=== PATIENT | female | born 1985 ===

== ENCOUNTER 2017-11-27 09:01 | Observation (INO) | payer OTHER ==
[~2017-11-27] VITALS: Ht 157.5 cm; Wt 61.3 kg
[2017-11-27 09:02] VITALS: BP 140/77; PULSE 68; RESP 18; TEMP 98; O2SAT 100
--- NOTE | 2017-11-27 11:07 | PD ---
HPI Chief Complaint: Abdominal Pain Time Seen by Provider: 10:49 Travel History International Travel<30 days: No Contact w/Intl Traveler<30days: No Traveled to known affect area: No History of Present Illness HPI The patient is a 32-year-old female who presents emergency department for right upper quadrant abdominal pain. The patient has had abdominal pain since September, after the delivery of her child. The patient was seen yesterday in the office by Dr. Siegel, had imaging the ultrasound which revealed gallstones. The patient has had pain that is postprandial and associated with nausea and vomiting. She notes decreased appetite over the last several days and has been unable to tolerate oral intake secondary to persistent right upper quadrant abdominal pain after eating. The patient did deliver a child 2-1/2 months ago, recently had a menstrual cycle, but denies . She does know postprandial nausea and vomiting with pain. She denies any fever, chills, or sweats. Symptoms are moderate, possibly exacerbated by gallstones and eating, and there are no current alleviating factors. The patient called her general surgeon, Dr. Siegel, who referred her to the emergency department. [facility] Past Medical History Medical History: Denies Significant Hx Gastrointestinal Disorders: Yes (gall stones) Tetanus Vaccination: Unknown Influenza Vaccination: No ?: Not LMP: 10/2017 : 2 Para: 2 Past Surgical History Oral Surgery: Yes (wisdom teeth removal) Social History Alcohol Use: No Tobacco Use: No Substance Use: No Allergies-Medications (Allergen,Severity, Reaction): Coded Allergies: No Known Allergies (Unverified , 11/27/17) Reported Meds & Prescriptions Reported Meds & Active Scripts Active No Active Prescriptions or Reported Medications Review of Systems Except as stated in HPI: all other systems reviewed are Neg General / Constitutional: No: Fever Cardiovascular: No: Chest Pain or Discomfort Respiratory: No: Shortness of Breath Gastrointestinal: Positive: Nausea, Vomiting, Abdominal Pain, No: Diarrhea Neurologic: No: Weakness Physical Exam Narrative GENERAL: Awake, alert, very pleasant 32 year-old female who appears her stated age and is in no acute respiratory distress. SKIN: Focused skin assessment warm/dry. HEAD: Atraumatic. Normocephalic. EYES: Pupils equal and round. No scleral icterus. No injection or drainage. ENT: No nasal bleeding or discharge. Mucous membranes pink and moist. NECK: Trachea midline. No JVD. CARDIOVASCULAR: Regular rate and rhythm. No murmur appreciated. RESPIRATORY: No accessory muscle use. Clear to auscultation. Breath sounds equal bilaterally. GASTROINTESTINAL: Abdomen soft, tender palpation right upper quadrant. Positive Doyle's. MUSCULOSKELETAL: No obvious deformities. No clubbing. No cyanosis. No edema. NEUROLOGICAL: Awake and alert. No obvious cranial nerve deficits. Motor grossly within normal limits. Normal speech. PSYCHIATRIC: Appropriate mood and affect; insight and judgment normal. Data Data Last Documented VS Vital Signs Date Time Temp Pulse Resp B/P (MAP) Pulse Ox O2 Delivery O2 Flow Rate FiO2 11/27/17 10:51 16 11/27/17 09:02 98.0 68 140/77 (98) 100 Room Air Orders Orders Complete Blood Count With Diff (11/27/17 10:17) Comprehensive Metabolic Panel (11/27/17 10:17) Act Partial Throm Time (Ptt) (11/27/17 10:17) Prothrombin Time / Inr (Pt) (11/27/17 10:17) Urinalysis - C+S If Indicated (11/27/17 10:17) Ed Urine Pregnancytest Poc (11/27/17 10:19) Morphine Inj (Morphine Inj) (11/27/17 11:00) Ondansetron Inj (Zofran Inj) (11/27/17 11:00) Sodium Chlor 0.9% 1000 Ml Inj (Ns 1000 M (11/27/17 11:00) NPO (11/27/17 10:49) Admit Order (Ed Use Only) (11/27/17 10:53) MDM Medical Decision Making Medical Screen Exam Complete: Yes Emergency Medical Condition: Yes Medical Record Reviewed: Yes Interpretation(s) CBC unremarkable AST and ALT from CMP elevated, bilirubin were normal Differential Diagnosis Differential diagnosis includes cholecystitis, retained biliary stone, choledocholithiasis, symptomatic cholelithiasis, pancreatitis, peptic ulcer disease. Narrative Course IV was established, labs are drawn and sent, and the patient was placed on cardiac telemetry monitoring and continuous pulse oximeter monitoring. I discussed the patient with Dr. Siegel who request laboratory evaluation, and nothing by mouth. The patient will be kept nothing by mouth and plan for surgery. The patient was ordered morphine, Zofran, and IV fluids. The patient will go straight to PACU from [facility]. Physician Communication Physician Communication The patient will be 23 hour observation to same-day care under Dr. Siegel and will go straight to PACU. Diagnosis Primary Impression: Symptomatic cholelithiasis Admitting Information Admitting Physician Requests: Observation Scripts No Active Prescriptions or Reported Meds Condition: Stable Thanh Agrawal MD Nov 27, 2017 11:07
[2017-11-27] MEDS ORDERED: BUPIVACAINE/EPINEPHRINE 0.25% 50 ML VIAL ONE (11:22)
[2017-11-27] MEDS ORDERED: ROCURONIUM INJ 50 MG/5 ML SYRINGE IV PUSH ONE (12:00)
[2017-11-27] MEDS ORDERED: LIDOCAINE HCL 1% PF 5 ML SYRINGE OTHER ONE (12:00)
[2017-11-27] MEDS ORDERED: ONDANSETRON HCL 4 MG/2 ML VIAL IV PUSH ONE ×2 (12:00→13:48)
[2017-11-27] MEDS ORDERED: GLYCOPYRROLATE 1 MG/5 ML SYRINGE IV PUSH ONE (12:00)
[2017-11-27] MEDS ORDERED: PROPOFOL 200 MG/20 ML AMP IV ONE (12:00)
[2017-11-27] MEDS ORDERED: SODIUM CHLORIDE 0.9% 20 ML VIAL IV ONE (12:00)
[2017-11-27] MEDS ORDERED: NEOSTIGMINE 5 MG/5 ML SYRINGE IV PUSH ONE (12:00)
[2017-11-27] MEDS ORDERED: ceFAZolin INJ 1,000 MG VIAL IV ONE (12:00)
[2017-11-27 12:05] LABS: AUTOMATED NEUTROPHIL # 3.6 TH/MM3 (1.8-7.7); BASOPHIL % 0.6 % (0.0-2.0); EOSINOPHIL # 0.2 TH/MM3 (0-0.4); HEMATOCRIT 38.8 % (35.0-46.0); HEMOGLOBIN 13.2 GM/DL (11.6-15.3); LYMPH % 28.3 % (9.0-44.0); LYMPHOCYTE # 1.6 TH/MM3 (1.0-4.8); MEAN CORPUSCULAR HEMOGLOBIN 30.2 PG (27.0-34.0); MEAN PLATELET VOLUME 9.3 FL (7.0-11.0); MONO % 5.7 % (0.0-8.0); MONOCYTE # 0.3 TH/MM3 (0-0.9); NEUT % 62.4 % (16.0-70.0); PLATELET COUNT 177 TH/MM3 (150-450); RED BLOOD COUNT 4.36 MIL/MM3 (4.00-5.30); RED CELL DISTRIBUTION WIDTH 13.8 % (11.6-17.2); WHITE BLOOD COUNT 5.8 TH/MM3 (4.0-11.0)
[2017-11-27 12:14] LABS: INTERNATIONAL NORMALIZED RATIO 1.1 RATIO; PROTHROMBIN TIME - PATIENT 10.7 SEC (9.8-11.6)
[2017-11-27 12:25] LABS: AST (GOT) 343 U/L (15-37); BICARBONATE 24.4 MEQ/L (21.0-32.0); BLOOD UREA NITROGEN 18 MG/DL (7-18); CALCIUM 8.9 MG/DL (8.5-10.1); CHLORIDE 107 MEQ/L (98-107); CREATININE 0.66 MG/DL (0.50-1.00); GLOMERULAR FILTRATION RATE 105 ML/MIN (>89); GLUCOSE,RANDOM 69 MG/DL (74-106); SODIUM (NA) 139 MEQ/L (136-145)
[2017-11-27 12:26] LABS: ALT (GPT) 806 U/L (10-53)
[2017-11-27 12:28] LABS: ALKALINE PHOSPHATASE 337 U/L (45-117); TOTAL BILIRUBIN ADULT 0.8 MG/DL (0.2-1.0)
[2017-11-27] MEDS ORDERED: DO NOT ADM ANY ANTICOAGULANT DRUGS PRN (13:34)
[2017-11-27] MEDS ORDERED: *morphine SULFATE 4 MG/ML PERIprocedure ONLY ONE ×2 (13:41→14:06)
--- NOTE | 2017-11-27 13:41 | HHI.PR ---
cc: Bryon Siegel MD Immediate Post Op Note Procedure Date: Nov 27, 2017 Pre Op Diagnosis: Acute cholecystitis with elevated LFT's Post Op Diagnosis: Same Surgeon: Bryon Siegel Enamel Finisher(s): Louise Calixto CFA Procedure: Laparoscopic cholecystectomy with intraoperative cholangiogram with intraoperative use of fluoroscopy Findings: No flow of contrast past distal CBD; no evidence filling defects Complications: None Specimen(s) removed: Gallbladder to pathology Estimated blood loss: 20 ml Anesthesia: General Drains: None IVF (700 ml) Patient to: PACU Patient Condition: Good Date/Time of Procedure: SEE SURGICAL CARE RECORD Bryon Siegel MD Nov 27, 2017 13:41
[2017-11-27] MEDS ORDERED: *ONDANSETRON 4 MG VIAL PERIprocedural Use ONLY ONE (13:48)
[2017-11-27] MEDS ORDERED: MORPHINE SULFATE 2 MG/ML INJ IV PUSH ONE (14:00)
[2017-11-27] MEDS ORDERED: ACETAMINOPHEN/HYDROcodone 325 MG/5 MG TAB PO PRN (14:00)
[2017-11-27] MEDS: SODIUM CHLOR 0.9% 1000 ML INJ 1,000 ML IV SCH ×2 (14:00→23:24)
[2017-11-27] MEDS ORDERED: *MEPERIDINE 25 MG INJ VIAL PERIprocedural Use ONLY ONE (14:08)
[2017-11-27] MEDS ORDERED: diphenhydrAMINE HCL 25 MG CAP PO PRN (14:15)
[2017-11-27] MEDS ORDERED: SODIUM CHLOR 0.9% 1000 ML INJ 1,000 ML IV ONE (14:15)
[2017-11-27] MEDS ORDERED: NALOXONE HCL 0.4 MG/ML AMP IV PUSH PRN (14:15)
[2017-11-27] MEDS ORDERED: Post-op Orders (for Pharmacy) XX ONE (14:30)
--- NOTE | 2017-11-27 15:00 | RADRPT ---
EXAM DATE/TIME: 11/27/2017 12:57 [facility] COMPARISON: No previous studies available for comparison. INDICATIONS : obstruction. FLUORO TIME: 1.52 minutes IMAGE COUNT: 3 MEDICAL HISTORY : Cholelithiasis. SURGICAL HISTORY : None. ENCOUNTER: Initial ACUITY: 1 day PAIN SCORE: Non-responsive. LOCATION: Right upper quadrant PROCEDURE: CHOLANGIOGRAM, OPERATIVE 1. Intraoperative cholangiogram. In the operating room, the cystic duct stump was injected and radiographs obtained. There is mild prominence to the common duct with smooth tapering into the head of the pancreas. Ther e is no spillage into the duodenum.. Filling defect is not appreciated. CONCLUSION: Smooth tapering distal common duct through the head of pancreas without spillage into the duodenum. I have no prior studies for comparison. Felix Elmore MD FACR on November 27, 2017 at 14:56 Board Certified Radiologist. This report was verified electronically.
[2017-11-27] MEDS: MORPHINE SULFATE 2 MG/ML INJ IV PUSH PRN ×4 (16:05→23:24)
[2017-11-27 17:24] VITALS: BP 111/71; PULSE 73; RESP 16; TEMP 96.3; O2SAT 99
[2017-11-27 20:00] VITALS: BP 105/67; PULSE 62; RESP 17; TEMP 97.9; O2SAT 96
--- NOTE | 2017-11-27 20:30 | RADRPT ---
EXAM DATE/TIME: 11/27/2017 19:39 [facility] COMPARISON: No previous studies available for comparison. INDICATIONS : Abdominal pain. Post cholecystectomy. Abnormal cholangiogram. MEDICAL HISTORY : None. SURGICAL HISTORY : Cholecystectomy. ENCOUNTER: Subsequent ACUITY: 1 day PAIN SCORE: 4/10 LOCATION: abdomen. TECHNIQUE: Multiplanar, multisequence magnetic resonance imaging of the abdomen was performed. High-resolution 3D dataset was utilized to reconstruct maximum-intensity projection (MIP) images. FINDINGS: INTRAHEPATIC BILE DUCTS: Within normal limits. No significant anatomical variant is present. EXTRAHEPATIC BILE DUCTS: There is an acute angle in the common bile duct just distal to the cystic duct insertion but I don't believe it's a filling defect or stone. At the very distal common bile duct there is a small 2 mm ender ling defect could be air or small stones. GALLBLADDER: Surgically absent. LIVER: Normal size and signal intensity. No concerning liver lesion is identified on this non-contrast exam. PANCREAS: The main pancreatic duct is normal in size. There is no significant anatomical variant. Signal inte nsity is within normal limits. No mass is visualized on this non-contrast exam. OTHER: The remaining visualized structures demonstrate no acute abnormality on this non-contrast exam. CONCLUSION: The patient had a recent cholecystectomy. There is a 2 mm filling defect in the distal common bile du ct just above the ampulla. Stone versus small area of retained air. Socrates Jackson MD on November 27, 2017 at 20:26 Board Certified Radiologist. This report was verified electronically.
[2017-11-28] VITALS: BP_SYST 117; BP_SYST 127; BP_DIAS 60; BP_DIAS 68; PULSE 53; PULSE 70; RESP 16; RESP 17; TEMP 97.7; TEMP 98; O2SAT 96; O2SAT 98
[2017-11-28] MEDS ORDERED: LACTATED RINGER'S 1000 ML IV PRN (02:00)
[2017-11-28] MEDS ORDERED: CHLORHEXIDINE GLUCONATE 2 % 1 PACK (2 CLOTHS) TOPICAL PRN (02:00)
[2017-11-28] MEDS ORDERED: POVIDONE IODINE 5% (ANTISEPSIS KIT) 4 APPLICATIONS EACH NARE PRN (02:00)
[2017-11-28] MEDS ORDERED: SODIUM CHLORID 0.9% 500 ML IV PRN (02:00)
[2017-11-28] MEDS: MORPHINE SULFATE 2 MG/ML INJ IV PUSH PRN ×5 (03:23→23:06)
--- NOTE | 2017-11-28 07:24 | MP ---
cc: ELIDA DANIELLE M.D. DATE OF SURGERY 11/27/2017 PROCEDURE Laparoscopic cholecystectomy with intraoperative cholangiogram with intraoperative use of fluoroscopy. PREOPERATIVE DIAGNOSIS Acute cholecystitis with possible choledocholithiasis. POSTOPERATIVE DIAGNOSIS Acute cholecystitis without evidence of filling defect but with distal common bile duct obstruction. ANESTHESIA General endotracheal. SURGEON MD Robbin ESTIMATED BLOOD LOSS 20 mL. FLUIDS 700 mL crystalloid. COMPLICATIONS None. DRAINS None. SPECIMEN Gallbladder to pathology. PROCEDURE IN DETAIL The patient was taken to the operating room and placed on the operating table in the supine position. After an adequate level of general endotracheal anesthesia was achieved, the abdomen was prepped and draped in the usual fashion. Time-out was taken confirming the correct patient site and procedure to be performed. The skin and subcutaneous tissue was infiltrated with local anesthetic and an incision made in the umbilicus and carried through the fascia sharply. The peritoneal cavity was directly visualized. A 12-mm balloon trocar was inserted and the balloon inflated. The abdomen was insufflated. The patient was placed in reverse Trendelenburg position. Three 5-mm trocars were then placed with the first to the right of the falciform ligament and second and third in the right subcostal region. All entered the abdominal cavity under direct vision uneventfully. The fundus of the gallbladder was then grasped and retracted up and over the dome of the liver. The cystic duct-infundibular junction and cystic artery were both circumferentially dissected. The cystic artery was doubly clipped proximally, singly clipped on the gallbladder side and divided. The cystic duct was singly clipped on the gallbladder side and a cystic ductotomy was made as the patient had elevated liver function tests and there was some concern for common duct stone. The patient had placement of an Rojas cholangiocatheter via separate a stab incision which was secured with a clip. Full-strength contrast was utilized and under real-time fluoroscopy three runs were made. Glucagon was given after the first run as the common duct filled with good backfilling of the common hepatic duct and the left and right hepatic ducts and hepatic radicals. The distal common bile duct also filled including the intrapancreatic portion of the distal bile duct. No filling defects were noted, however there was no passage of contrast into the duodenum. After the third run, the cholangiocatheter was removed and the cystic duct was triply clipped distally and then divided. The gallbladder was dissected off of the liver bed. A small posterior branch off the cystic artery was noted and this was doubly clipped during removal of the gallbladder to achieve absolute hemostasis. The gallbladder was dissected off of the liver bed with electrodissection. The gallbladder was placed into an EndoCatch device and removed via the umbilical port while observing via the upper 5-mm trocar site. The specimen was passed off the table. The upper abdomen was revisualized and all irrigation aspirated. The cystic artery stumps, cystic duct stump and liver bed were all seen to be clean and dry. Insufflation was discontinued and the upper abdominal trocars were removed under direct vision. No bleeding was noted from the trocar sites. The laparoscope and umbilical port were removed. The fascia was closed at the umbilicus with both simple interrupted and [id number] 0 Vicryl suture. 4-0 Vicryl in an interrupted buried fashion was used to close all of the port sites except for the cholangiocatheter site. Steri-Strips were used to dress all sites. The patient was extubated and taken back to the recovery room in stable condition. She tolerated the procedure well. MD SERGEI Cast/[place] /1:44 PM /7:07 AM
[2017-11-28 08:00] VITALS: BP 100/57; PULSE 68; RESP 17; TEMP 97.7; O2SAT 97
[2017-11-28] MEDS: SODIUM CHLOR 0.9% 1000 ML INJ 1,000 ML IV SCH ×2 (09:14→20:54)
--- NOTE | 2017-11-28 10:19 | MB ---
cc: ELIDA SIEGEL M.D., LOUIS M. MD PASRICHA, SUNIL P. M.D. DATE OF CONSULTATION 11/27/2017 DATE OF 1985 REASON FOR CONSULTATION I was asked to see the patient by Dr. Siegel for evaluation of possible common bile duct obstruction. HISTORY OF THE PRESENT ILLNESS The patient is a pleasant 32-year-old female who recently delivered a healthy child. About a month after delivery she started getting upper abdominal pain. It was sharp and cramping and radiating from the epigastric area to her back. She went to the emergency room in her local community and apparently an ultrasound showed gallstones and 7-mm common bile duct. There is minimal elevation of her SGOT also. At this point she was sent by Dr. Pnoce to see Dr. Siegel who operated on her today. The gallbladder was not inflamed and it was removed laparoscopically. An intraoperative cholangiogram was done and the bile duct was slightly dilated but there is no spillage into the duodenum. There is no filling defects noted in the bile duct. We have been asked to comment on this. In addition her transaminase and alkaline phosphatase are quite elevated but her bilirubin is normal. The patient denies any family history of any gallbladder disease. No persons in the family with liver disease. There is no history of blood transfusion or hepatitis. At this time she still has some upper abdominal pain but it is hard to tell whether it is the previous pain or from the gallbladder operation. PAST MEDICAL HISTORY Significant for: 1. Gallstones as mentioned above. 2. She also has history of asthma. PAST SURGICAL HISTORY Recent gallbladder removal. MEDICATIONS Mostly outpatient. ALLERGIES No known drug allergies. FAMILY HISTORY Not significant for any colon cancer, colon polyps or gallbladder disease. SOCIAL HISTORY Does not smoke or drink. REVIEW OF SYSTEMS As an outpatient she had chills but no fevers. CARDIOPULMONARY: No chest pain, palpitations or recent shortness of breath. GASTROINTESTINAL: Please see above. She also denies any melena, hematochezia, diarrhea or constipation. She has had nausea and vomiting but it is better now. Otherwise unremarkable ten-point review of symptoms. MEDICATIONS As an inpatient are: 1. Zofran. 2. Benadryl. 3. Narcan. 4. [place]. 5. Morphine. PHYSICAL EXAMINATION VITAL SIGNS: Blood pressure is 113/78, pulse was 75, respiratory rate 16, temperature is 97. GENERAL: She is a well-developed, well-nourished female in some abdominal discomfort (she was seen immediately postoperative) but she was alert and oriented times three. HEENT: Pupils equal, round, reactive to light. No obvious scleral icterus. Oropharynx cavity - dental caries. No tongue deviation or candidal lesions. Hearing intact. NECK: Supple. No thyromegaly or lymphadenopathy. LUNGS: Clear to auscultation and percussion. HEART: Regular rate and rhythm. No murmurs are heard. ABDOMEN: Abdomen was a difficult examination but she had a pillow on it and she was bandaged, but it appeared to be soft and mild diffuse tenderness but no rebound tenderness, organomegaly or masses. Bowel sounds are minimal. EXTREMITIES: No clubbing, cyanosis or edema. NEUROLOGIC: Her cranial nerves are grossly intact. No gross sensory deficits. RECTAL: Examination was not done. I did not assess her gait. LABORATORY DATA Her data base, her prothrombin time is 10.7, INR 1.1, PTT of 27.3. Her BUN 18, creatinine 0.66, total bilirubin 0.8. SGOT is elevated at 343. SGPT elevated 806. Alkaline phos of 337. Elevated total protein of 8.0, albumin of 4.0. The total bilirubin is 0.8. White blood cell count 5800, hemoglobin 13.2, hematocrit 38.8, MCV 89, platelet count of 177,000. Intraoperative cholangiogram shows smooth tapering distal common bile duct through the head of the pancreas without spillage into the duodenum. IMPRESSION 1. Increased LFTs - her alk phos SGOT, SGPT are quite elevated. Bilirubin is normal. Must rule out some type of biliary process whether it is related to a stone, a stricture, ampullary stenosis, malignancy etc. 2. Abdominal pain probably related to biliary tract process and recent gallbladder operation. 3. Her gallstones and gallbladder have been removed. 4. Dilated bile duct in the past and as mentioned above no flow into the duodenum on intraoperative cholangiogram. RECOMMENDATIONS I discussed the situation with Dr. Siegel, the patient and the patient's as well as Dr. Doan. We need to evaluate the biliary tree in more detail to find out what is causing this possible obstruction of the bile duct and increased liver function tests. Options include MRCP, EUS as well as ERCP. ERCP is most invasive. After a long discussion it was decided to proceed with an MRCP tonight to evaluate the bile duct for any ampullary stenosis and to delineate her anatomy. Depending on this, we will proceed with the EUS / ERCP. All indications, risks, complications and benefits and alternatives were discussed with her and her family including risks of bleeding, perforation, infection, arrhythmias, life-threatening pancreatitis, life threatening cholangitis and the small possibility of . She understands if there is ampullary stenosis there may be a little higher risk of pancreatitis. The patient understands that Dr. César Doan will do the procedure for us. We can do it tomorrow afternoon depending on the MRCP. Hopefully we can do the MRCP tonight and I have talked to the nurse about this and she will try to get it on for tonight. MD JOSSELYN Corral/[place] /5:25 PM /10:05 AM
--- NOTE | 2017-11-28 11:39 | HHI.PR ---
Subjective Subjective Notes Resting in bed No complaints Mildly tender with palpation and moving around Objective Vitals/I&O Vital Signs Date Time Temp Pulse Resp B/P (MAP) Pulse Ox O2 Delivery O2 Flow Rate FiO2 11/28/17 08:00 97.7 68 17 100/57 (71) 97 11/27/17 16:30 Room Air 11/27/17 13:30 2 Cardiovascular: Regular Lungs: Clear Abdomen: Other (lap sites with mild bloody drainage; tender to palpation; abdomen flat non distended ) Extremities: No edema A/P Assessment and Plan 32 year old female POD1 lap pancho for acute cholecystitis and with possible choledocholithiasis; possible CBD obstruction -GI consulted---planning on doing ERCP this afternoon -Tolerated clear liquids last night; NPO now for procedure -IVF -Await results of ERCP this afternoon -Pain control with Bitely/morphine Attending Note - Dr. Siegel Still painful, likely secondary to CBD pathology/stone. ERCP today Possible discharge tomorrow if doing well after procedure. The exam, history, and the medical decision-making described in the above note were completed with the assistance of the mid-level provider. I reviewed and agree with the findings presented. I attest that I had a [id number] encounter with the patient on the same day, and personally performed and documented my assessment and findings in the medical record. Venice Colon Nov 28, 2017 11:39 Bryon Siegel MD Dec 01, 2017 13:03
[2017-11-28 12:00] VITALS: BP 98/56; PULSE 91; RESP 17; TEMP 97.2; O2SAT 98; O2SAT 99
[2017-11-28] MEDS ORDERED: PHENYLEPH/NS 1000 MCG/10 ML SYR IV ONE (12:00)
[2017-11-28] MEDS ORDERED: GLYCOPYRROLATE 1 MG/5 ML SYRINGE IV PUSH ONE (12:00)
[2017-11-28] MEDS ORDERED: ROCURONIUM INJ 50 MG/5 ML SYRINGE IV PUSH ONE (12:00)
[2017-11-28] MEDS ORDERED: ONDANSETRON HCL 4 MG/2 ML VIAL IV ONE (12:00)
[2017-11-28] MEDS ORDERED: DEXAMETHASONE SOD PHOS 4 MG/ML VIAL IV ONE (12:00)
[2017-11-28] MEDS ORDERED: PROPOFOL 200 MG/20 ML AMP IV ONE (12:00)
[2017-11-28] MEDS ORDERED: LIDOCAINE HCL 1% PF 5 ML SYRINGE OTHER ONE (12:00)
[2017-11-28] MEDS ORDERED: NEOSTIGMINE 5 MG/5 ML SYRINGE IV PUSH ONE (12:00)
[2017-11-28] MEDS: ONDANSETRON HCL 4 MG/2 ML VIAL IV PUSH PRN ×2 (13:26→20:53)
[2017-11-28 16:00] VITALS: BP 99/47; PULSE 77; RESP 17; TEMP 96.8; O2SAT 98
--- NOTE | 2017-11-28 18:35 | GIPROC ---
[facility] [address] [facility]. [facility], [address] UPPER ENDOSCOPIC ULTRASOUND PROCEDURE REPORT EXAM DATE: 11/28/2017 PATIENT NAME: Lynette Coronado MR#: [id number] BIRTHDATE: 1985 ATTENDING: César Doan MD ORDER: [id number] CUT AND PRINT MACHINE OPERATOR: Izzy Sheldon RN and Ketty Jefferson RN STATUS: inpatient INDICATIONS: The patient is a 32 yr old female here for a lower endoscopic ultrasound due to abnormal liver function test, abnormal MRI of the GI tract, and Suspected biliary obstruction PROCEDURE PERFORMED: Upper Endoscopic Ultrasound without FNA MEDICATIONS: None and Per Anesthesia. CONSENT: The patient understands the risks and benefits of the procedure and understands that these risks include, but are not limited to: sedation, allergic reaction, infection, perforation and/or bleeding. Alternative means of evaluation and treatment include, among others: physical exam, x-rays, and/or surgical intervention. The patient elects to proceed with this endoscopic procedure. medical equipment was checked for proper function. Hand hygiene and appropriate measures for infection prevention was taken. After the risks, benefits and alternatives of the procedure were thoroughly explained, Informed consent was verified, confirmed and timeout was successfully executed by the treatment team. The patient was then placed in the left, lateral, decubitus position and IV sedation was administered. Throughout the procedure, the patients blood pressure, pulse and oxygen saturations were monitored continuously. Under direct visualization, the Pentax [id number] was introduced through the mouth and advanced to the second portion of the duodenum. Water was used as necessary to provide an acoustic interface. The pulse, BP, and O2 saturation were monitored and documented by the physician and nursing staff throughout the procedure. Upon completion of the imaging, water was removed and the patient was then discharged to recovery in stable condition with the appropriate post procedure care. BILIARY SYSTEM: The CBD was dilated 9 mm. A single 3 mm stone was found in the distal common bile duct. GALLBLADDER: The gallbladder was surgically absent. PANCREAS: The pancreas parenchyma appeared heterogeneous without masses, cysts or changes of chronic pancreatitis. The pancreatic duct was non-dilated. ADVERSE EVENTS: There were no complications IMPRESSIONS: 1. The CBD was dilated 9 mm 2. Single 3 mm gallstone was found in the distal common bile duct 3. The gallbladder was surgically absent 4. The pancreas parenchyma appeared heterogeneous without masses, cysts or changes of chronic pancreatitis. The pancreatic duct was non-dilated RECOMMENDATIONS: ERCP César Doan MD eSigned: César Doan MD 11/28/2017 6:35 PM cc: Bryon Siegel M.D. PATIENT NAME: Lynette Coronado MR#: [id number]
--- NOTE | 2017-11-28 18:44 | GIPROC ---
[facility] [address] [facility]. [facility], [address] ERCP PROCEDURE REPORT EXAM DATE: 11/28/2017 PATIENT NAME: Lynette Coronado MR #: [id number] BIRTHDATE: 1985 ATTENDING: César Doan MD ORDER #: [id number] FUNCTIONAL ANALYST: Izzy Sheldon and Ketty Jefferson STATUS: inpatient INDICATIONS: The patient is a 32 yr old female here for an ERCP due to therapy of bile duct stone(s) PROCEDURE PERFORMED: ERCP with sphincterotomy/papillotomy ERCP with removal of calculus/calculi MEDICATIONS: None and Per Anesthesia. CONSENT: The patient understands the risks and benefits of the procedure and understands that these risks include, but are not limited to: sedation, allergic reaction, infection, perforation and/or bleeding. Alternative means of evaluation and treatment include, among others: physical exam, x-rays, and/or surgical intervention. The patient elects to proceed with this endoscopic procedure. medical equipment was checked for proper function. Hand hygiene and appropriate measures for infection prevention was taken. After the risks, benefits and alternatives of the procedure were thoroughly explained, Informed was verified, confirmed and timeout was successfully executed by the treatment team. With the patient in left semi-prone position, medications were administered intravenously.The [employer] [id number] was passed from the mouth into the esophagus and further advanced from the esophagus into the stomach. From stomach scope was directed to the descending duodenum. Major papilla was aligned with the duodenoscope. The scope position was confirmed fluoroscopically. Rest of the findings/therapeutics are given below. The scope was then completely withdrawn from the patient and the procedure completed. The pulse, BP, and O2 saturation were monitored and documented by the physician and the nursing staff throughout the entire procedure. The patient was cared for as planned according to standard protocol. The patient was then discharged to recovery in stable condition and with appropriate post procedure care. The ampulla was located the second portion of the duodenum. A single filling defect was seen in the distal common bile duct. There was a dilation of the CBD. Bile duct cannulation was attempted using the sphinctertome with guidewire. Cannulation of the bile duct was performed with ease. Deep cannulation with the sphincterotome was successfully achieved. Contrast was injected into the bile duct and a cholangiogram obtained. With guidewire in the bile duct, a biliary sphincterotomy was performed using the sphincterotome. Using a stone extraction balloon the bile duct was swept several times. A single stone was removed from the bile duct successfully. A balloon occlusion cholangiogram was performed. ADVERSE EVENT: There were no complications. IMPRESSIONS: 1. Distal common bile duct obstruction 2. S/p sphincterotomy and extract of stone 3. Common bile duct stone(s) 4. S/p Cholecystectomy RECOMMENDATIONS: 1. Clear liquid diet now and advance as tolerated 2. Monitor LFts trend 3. No further GI workup/treatment needed at this time REPEAT EXAM: NONE César Doan MD eSigned: César Doan MD 11/28/2017 6:44 PM cc: Bryon Siegel M.D. PATIENT NAME: Lynette Coronado MR#: [id number]
[2017-11-28] MEDS ORDERED: MIDAZOLAM HCL 2 MG/2 ML VIAL ONE (18:48)
[2017-11-28] MEDS ORDERED: *morphine SULFATE 4 MG/ML PERIprocedure ONLY ONE (19:13)
[2017-11-28 20:00] VITALS: BP 112/69; PULSE 65; RESP 16; TEMP 97.5; O2SAT 98
[2017-11-28] MEDS ORDERED: DO NOT ADM ANY ANTICOAGULANT DRUGS PRN (20:45)
--- NOTE | 2017-11-28 21:14 | RADRPT ---
EXAM DATE/TIME: 11/28/2017 18:21 [facility] COMPARISON: MRCP W/O CONTRAST, November 27, 2017, 19:39. INDICATIONS : Biliary obstruction FLUORO TIME: 2.08 minutes IMAGE COUNT: 7 CONTRAST: Instilled by Ordering Physician MEDICAL HISTORY : None. SURGICAL HISTORY : Cholecystectomy. ENCOUNTER: Initial ACUITY: 2 days PAIN SCORE: Non-responsive. LOCATION: Abdomen FINDINGS: An ERCP was performed by the ordering physician. The images demonstrate an approximately 3 mm round filling defect in the distal common bile duct. I d on't clearly see it on subsequent images. The duct is slightly distended. CONCLUSION: Small filling defect in the distal duct that appears to be removed on the subsequent images. Patrick Templeton MD on November 28, 2017 at 21:10 Board Certified Radiologist. This report was verified electronically.
[2017-11-29] VITALS: BP 145/91; PULSE 72; RESP 18; TEMP 97.6; O2SAT 99
[2017-11-29] MEDS: ACETAMINOPHEN/HYDROcodone 325 MG/5 MG TAB PO PRN ×2 (00:16→11:04)
[2017-11-29 04:00] VITALS: BP 129/85; PULSE 64; RESP 18; TEMP 96.6; O2SAT 96
[2017-11-29 06:14] LABS: ALBUMIN 3.3 GM/DL (3.4-5.0); DIRECT BILIRUBIN ADULT 0.2 MG/DL (0.0-0.2); INDIRECT BILIRUBIN 0.5 MG/DL (0.0-0.8); TOTAL BILIRUBIN ADULT 0.7 MG/DL (0.2-1.0); TOTAL PROTEIN 7.3 GM/DL (6.4-8.2)
[2017-11-29] MEDS: SODIUM CHLOR 0.9% 1000 ML INJ 1,000 ML IV SCH (06:20)
[2017-11-29 08:00] VITALS: BP 112/69; PULSE 76; RESP 17; TEMP 97.7; O2SAT 95
--- NOTE | 2017-11-29 08:33 | HHI.DS ---
Discharge Summary Admission Date Nov 27, 2017 at 13:37 Discharge Date: Nov 29, 2017 Admitting Diagnosis symptomatic cholelithiasis Brief History 32-year-old female with acute cholecystitis with elevated liver function tests. CBC/BMP: 11/27/17 1125 11/27/17 1125 Significant Findings Laboratory Tests Test 11/27/17 11:25 11/29/17 05:10 Random Glucose 69 MG/DL (74-106) Alkaline Phosphatase 337 U/L (45-117) 344 U/L (45-117) Aspartate Amino Transf (AST/SGOT) 343 U/L (15-37) 207 U/L (15-37) Alanine Aminotransferase (ALT/SGPT) 806 U/L (10-53) 544 U/L (10-53) Albumin 3.3 GM/DL (3.4-5.0) PE at Discharge Pleasant 32 year old female resting in bed in no acute distress Cardio: RRR Resp: CTAB Abd; lap sites c/d/i; Steri strips in place; minimal pain to palpation Hospital Course This is a 32-year-old female who came to the emergency department with right upper quadrant pain. Patient is found to have acute cholecystitis with elevated liver function tests. The patient was taken the operating room for laparoscopic cholecystectomy. Intraoperatively the patient's had a cholangiogram which showed no flow of contrast past the distal common bile duct. Gastroenterology was consulted and ERCP was done. A common bile duct stone was found. The patient recovered well and tolerating a regular diet. Her pain was controlled using oral pain medications. The patient will follow- up in the office on Saturday with Dr. Siegel. Pt Condition on Discharge: Good Discharge Disposition: Discharge Home Discharge Instructions DIET: Follow Instructions for: As Tolerated, No Restrictions Activities you can perform: See Additionl Instruction Other Activity Instructions: Okay to shower only; pat incisions dry No baths Avoid heavy pushing pulling or lifting [place] Colon Nov 29, 2017 08:33
--- NOTE | 2017-11-29 14:32 | HHI.GIFU ---
GI Follow-up Note Consult Follow-up Subjective: patient was seen earlier this morning prior to discharge that I was not able to put a note on the chart until this afternoon.. Patient was feeling quite well. Minimal incisional pain. She was about to eat a regular diet. She did tolerate liquids yesterday Objective: PHYSICAL EXAMINATION: Vitals signs stable No fever NECK: Neck is supple, no JVD, no lymphadenopathy. CHEST: Chest is clear to auscultation and percussion. CARDIAC: Regular rate and rhythm with no murmur gallop or rubs. ABDOMEN: Soft, nondistended, mild incisional tender; no hepatosplenomegaly; bowel sounds are present in all four quadrants. EXTREMITIES: No clubbing, cyanosis, or edema. SKIN: no jaundice. LIME BURNER: No focal deficits; alert and oriented times three. Available Data (labs, X- Rays, Procedues) : LFTs are still elevated but coming down. The ERCP note was reviewed with the patient and ASSESSMENT/PLAN: 1. CBD stone--this was removed via ERCP by Dr. Doan 2. gallstone-status post laparoscopic removal 3. abnormal LFTs-patient's transaminases are still quite high but improving. Her alkaline phosphatase is still high and it is slightly worse. Her bilirubin is normal. Patient and to understand this may be related to the choledocholithiasis and gallstones but there may be other etiologies also. This includes various viral hepatitis, autoimmune liver disease, metabolic or infiltrative processes. PLAN: 1. if tolerating diet she may be discharged today from the GI standpoint 2. patient lives in [place] and she will followup with her own PCP (or get a GI there) so they can monitor the LFTs to make sure that they are coming down. If they don't come down she may need further blood work as well as a possible liver biopsy It was a pleasure seeing Lynette Coronado. Thank you for this consult. Entered by: Wing Olson MD Nov 29, 2017 14:32
== END 2017-11-29 11:58 | disposition home or self-care (01) ==
LOC: HOR 09:01 → HSDI 13:37 → N07B 16:57
PROVIDERS: ADMIT Surgery Trauma Surgery; ATTEND Surgery Trauma Surgery
DX: K80.63 Calculus of gallbladder and bile duct with acute cholecystitis with obstruction (principal); K75.4 Autoimmune hepatitis; J45.909 Unspecified asthma, uncomplicated
CPT/HCPCS: 00732; 00790; 43259; 43262; 43264; 47562; 74181; 74300; 74330; 76377; 80053; 80076; 84703; 85025; 85610; 85730; 88304; 94150; 96361; 96374; 96375; 96376; 99285; C1769; G0378; J0690; J1100; J2175; J2250; J2270; J2370; J2405; J2710; J3010; J7030; J0131; J1610

== ENCOUNTER 2017-12-01 03:45 | Observation (INO) | payer OTHER ==
[~2017-12-01] VITALS: Ht 154.9 cm; Wt 60.0 kg
[2017-12-01] VITALS (7 sets, daily range): BP systolic 111–160; BP diastolic 70–102; PULSE 60–69; RESP 16–20; TEMP 97.9–98.7; O2SAT 97–100
[2017-12-01] MEDS ORDERED: NORC5TAB PO (03:57)
[2017-12-01] MEDS ORDERED: SODIUM CHLOR 0.9% 1000 ML INJ 1,000 ML IV SCH ×2 (03:58→10:30)
[2017-12-01] MEDS ORDERED: MORPHINE SULFATE 4 MG/ML INJ IV PUSH ONE ×3 (04:00→08:30)
[2017-12-01] MEDS ORDERED: ONDANSETRON HCL 4 MG/2 ML VIAL IVP ONE (04:00)
[2017-12-01] MEDS ORDERED: SODIUM CHLORIDE 0.9% FLUSH 10 ML FLUSH IV FLUSH PRN ×2 (04:00→10:15)
[2017-12-01] MEDS ORDERED: FAMOTIDINE 20 MG/2 ML VIAL IV PUSH ONE (04:00)
[2017-12-01 04:17] LABS: AUTOMATED NEUTROPHIL # 4.9 TH/MM3 (1.8-7.7); BASOPHIL % 0.4 % (0.0-2.0); EOSINOPHIL # 0.2 TH/MM3 (0-0.4); EOSINOPHIL % 2.4 % (0.0-4.0); HEMATOCRIT 34.8 % (35.0-46.0); LYMPH % 24.5 % (9.0-44.0); LYMPHOCYTE # 1.9 TH/MM3 (1.0-4.8); MEAN CELL VOLUME 87.6 FL (80.0-100.0); MEAN CORPUSCULAR HEMOGLOBIN 30.2 PG (27.0-34.0); MEAN CORPUSCULAR HGB CONC 34.5 % (32.0-36.0); MEAN PLATELET VOLUME 10.9 FL (7.0-11.0); MONO % 8.2 % (0.0-8.0); MONOCYTE # 0.6 TH/MM3 (0-0.9); NEUT % 64.5 % (16.0-70.0); PLATELET COUNT 103 TH/MM3 (150-450); RED BLOOD COUNT 3.97 MIL/MM3 (4.00-5.30); RED CELL DISTRIBUTION WIDTH 13.7 % (11.6-17.2); WHITE BLOOD COUNT 7.6 TH/MM3 (4.0-11.0)
[2017-12-01 04:36] LABS: ALBUMIN 3.5 GM/DL (3.4-5.0); AST (GOT) 122 U/L (15-37); BICARBONATE 28.9 MEQ/L (21.0-32.0); BLOOD UREA NITROGEN 9 MG/DL (7-18); CALCIUM 8.5 MG/DL (8.5-10.1); CHLORIDE 103 MEQ/L (98-107); CREATININE 0.69 MG/DL (0.50-1.00); GLOMERULAR FILTRATION RATE 100 ML/MIN (>89); GLUCOSE,RANDOM 81 MG/DL (74-106); LIPASE 146 U/L (73-393); SODIUM (NA) 139 MEQ/L (136-145)
[2017-12-01 04:37] LABS: ALT (GPT) 379 U/L (10-53)
--- NOTE | 2017-12-01 04:39 | RADRPT ---
EXAM DATE/TIME: 12/01/2017 04:15 [facility] COMPARISON: CHOLANGIOGRAM OPERATIVE, November 27, 2017, 12:57. MRCP W/O CONTRAST, November 27, 2017, 19:39. GI LA B ERCP, November 28, 2017, 18:21. INDICATIONS : Right upper qaudrant pain. Post cholecystectomy. ORAL CONTRAST: No oral contrast ingested. RADIATION DOSE: 5.44 CTDIvol (mGy) MEDICAL HISTORY : None SURGICAL HISTORY : Cholecystectomy. ENCOUNTER: Initial ACUITY: 3 days PAIN SCALE: 8/10 LOCATION: Right upper quadrant TECHNIQUE: Volumetric scanning of the abdomen and pelvis was performed. Using automated exposure control and ad justment of the mA and/or kV according to patient size, radiation dose was kept as low as reasonably achievable to obtain optimal diagnostic quality images. DICOM format image data is available electro nically for review and comparison. The lack of IV contrast limits the diagnosis for certain organ pa thology. FINDINGS: LOWER LUNGS: The visualized lower lungs are clear. LIVER: Homogeneous density without lesion. There is no dilation of the biliary tree. No gallbladder, surgi adams removed. 2 droplets of air are seen in the gallbladder fossa consistent with recent surgery. No free fluid or loculated fluid collections are demonstrated.. SPLEEN: Normal size without lesion. PANCREAS: Within normal limits. KIDNEYS: Normal in size and shape. There is no mass, stone, or hydronephrosis. ADRENAL GLANDS: Within normal limits. VASCULAR: There is no aortic aneurysm. BOWEL/MESENTERY: The stomach, small bowel, and colon demonstrate no acute abnormality. There is no free intraperitone al air or fluid. The appendix is unremarkable. There is stool throughout the colon. ABDOMINAL WALL: Within normal limits. RETROPERITONEUM: There is no lymphadenopathy. BLADDER: No wall thickening or mass. REPRODUCTIVE: Within normal limits. INGUINAL: There is no lymphadenopathy or hernia. MUSCULOSKELETAL: Within normal limits for patient age. CONCLUSION: 1. Status post recent cholecystectomy with some mild postsurgical changes. 2. Otherwise, no acute pathology. Jairo Rivas MD on December 01, 2017 at 4:32 Board Certified Radiologist. This report was verified electronically.
[2017-12-01 04:41] LABS: ALKALINE PHOSPHATASE 319 U/L (45-117); TOTAL BILIRUBIN ADULT 1.3 MG/DL (0.2-1.0); TOTAL PROTEIN 7.4 GM/DL (6.4-8.2)
[2017-12-01] MEDS ORDERED: KETOROLAC TROMETHAMINE 30 MG/ML (IVP) VIAL IV PUSH ONE ×2 (05:30→20:00)
[2017-12-01] MEDS ORDERED: ONDANSETRON HCL 4 MG/2 ML VIAL IV PUSH ONE (06:00)
--- NOTE | 2017-12-01 08:16 | PD ---
HPI . abdominal pain Chief Complaint: Abdominal Pain Time Seen by Provider: 03:58 Travel History International Travel<30 days: No Contact w/Intl Traveler<30days: No Traveled to known affect area: No History of Present Illness HPI 32-year-old female status post cholecystectomy and recent to return for choledocholithiasis status post ERCP and removal of stones, presents for third time with epigastric pain similar to her presentation with choledocholithiasis just prior. Patient has nausea vomiting and intense epigastric pain radiating to the back. Patient is not tolerating by mouth. Denies fever denies hematemesis denies melena or hematochezia. Patient patient's spoke with surgical nurse motion picture projectionist and recommended presentation to the ED for evaluation. Original cholecystectomy was performed by Dr. Robbin ORTIZ Past Medical History Narrative Medical Past medical history reviewed Arthritis: No Asthma: Yes Autoimmune Disease: No Blood Disorders: No Anxiety: No Depression: Yes () Heart Rhythm Problems: No Cancer: No Cardiovascular Problems: No High Cholesterol: No Chemotherapy: No Chest Pain: No Congestive Heart Failure: No COPD: No Cerebrovascular Accident: No Diabetes: Yes (gestational diabetes but resolved) Patient Takes Glucophage: No Endocrine: No Gastrointestinal Disorders: Yes (gall stones) GERD: No Genitourinary: No Hiatal Hernia: No Immune Disorder: No Kidney Stones: No Medical other: Yes (ercp) Musculoskeletal: No Neurologic: No Psychiatric: No Reproductive: No Respiratory: Yes Migraines: No Radiation Therapy: No Renal Failure: No Seizures: No Sickle Cell Disease: No Sleep Apnea: No Thyroid Disease: No Ulcer: No ?: Not : 2 Para: 2 Past Surgical History Abdominal Surgery: No AICD: No Arteriovenous Shunt: No Cardiac Surgery: No Cholecystectomy: Yes Ear Surgery: No Endocrine Surgery: No Eye Surgery: No Genitourinary Surgery: No Insulin Pump: No Joint Replacement: No Oral Surgery: Yes (wisdom teeth removal) Pacemaker: No Thoracic Surgery: No Other Surgery: Yes Social History Alcohol Use: No Tobacco Use: No Substance Use: No Allergies-Medications (Allergen,Severity, Reaction): Coded Allergies: No Known Allergies (Unverified , 12/01/17) Reported Meds & Prescriptions Reported Meds & Active Scripts Active Reported [place] (Hydrocodone-Acetaminophen) 5 Mg-325 Mg Tab 1 Tab PO Q4H PRN Narrative Medication Allergies and medications reviewed Review of Systems Except as stated in HPI: all other systems reviewed are Neg General / Constitutional: No: Fever Eyes: No: Visual changes HENT: No: Headaches Cardiovascular: No: Chest Pain or Discomfort Respiratory: No: Shortness of Breath Gastrointestinal: No: Abdominal Pain Genitourinary: No: Dysuria Musculoskeletal: No: Pain Skin: No Rash Neurologic: No: Weakness Psychiatric: No: Depression Endocrine: No: Polydipsia Hematologic/Lymphatic: No: Easy Bruising Physical Exam Narrative GENERAL: Awake and alert oriented 3 ill-appearing but in no acute distress SKIN: Warm and dry. Color is sallow, no diaphoresis cyanosis or pallor no jaundice HEAD: Atraumatic. Normocephalic. EYES: Pupils equal and round. No scleral icterus. No injection or drainage. ENT: No nasal bleeding or discharge. Mucous membranes pink and moist. NECK: Trachea midline. No JVD. Supple full range of motion CARDIOVASCULAR: Regular rate and rhythm. S1-S2 no murmurs rubs or gallops RESPIRATORY: No accessory muscle use. Clear to auscultation. Breath sounds equal bilaterally. GASTROINTESTINAL: Abdomen soft, tender epigastrium, no rebound or guarding nondistended. Hepatic and splenic margins not palpable. MUSCULOSKELETAL: Extremities without clubbing, cyanosis, or edema. No obvious deformities. NEUROLOGICAL: Awake and alert. No obvious cranial nerve deficits. Motor grossly within normal limits. Five out of 5 muscle strength in the arms and legs. Normal speech. PSYCHIATRIC: Appropriate mood and affect; insight and judgment normal. Data Data Last Documented VS Vital Signs Date Time Temp Pulse Resp B/P (MAP) Pulse Ox O2 Delivery O2 Flow Rate FiO2 12/01/17 05:50 60 18 160/102 (121) 98 Room Air 12/01/17 03:47 98.3 Orders Orders Beta Hcg (Quant/Titer) (12/01/17 03:58) Complete Blood Count With Diff (12/01/17 03:58) Comprehensive Metabolic Panel (12/01/17 03:58) Lipase (12/01/17 03:58) Lactic Acid (12/01/17 03:58) Urinalysis - C+S If Indicated (12/01/17 03:58) Ct Abd/Pel W/O Iv Contrast (12/01/17 03:58) Iv Access Insert/Monitor (12/01/17 03:58) Ecg Monitoring (12/01/17 03:58) Oximetry (12/01/17 03:58) Morphine Inj (Morphine Inj) (12/01/17 04:00) Ondansetron Inj (Zofran Inj) (12/01/17 04:00) Sodium Chlor 0.9% 1000 Ml Inj (Ns 1000 M (12/01/17 03:58) Sodium Chloride 0.9% Flush (Ns Flush) (12/01/17 04:00) Famotidine Inj (Pepcid Inj) (12/01/17 04:00) Morphine Inj (Morphine Inj) (12/01/17 05:30) Ketorolac Inj (Toradol Inj) (12/01/17 05:30) Ondansetron Inj (Zofran Inj) (12/01/17 06:00) Us Abdomen Liver (12/01/17 ) Mri Mrcp W/O Contrast (12/01/17 ) Admit Order (Ed Use Only) (12/01/17 08:08) Labs Laboratory Tests Test 12/01/17 04:05 White Blood Count 7.6 TH/MM3 Red Blood Count 3.97 MIL/MM3 Hemoglobin 12.0 GM/DL Hematocrit 34.8 % Mean Corpuscular Volume 87.6 FL Mean Corpuscular Hemoglobin 30.2 PG Mean Corpuscular Hemoglobin Concent 34.5 % Red Cell Distribution Width 13.7 % Platelet Count 103 TH/MM3 Mean Platelet Volume 10.9 FL Neutrophils (%) (Auto) 64.5 % Lymphocytes (%) (Auto) 24.5 % Monocytes (%) (Auto) 8.2 % Eosinophils (%) (Auto) 2.4 % Basophils (%) (Auto) 0.4 % Neutrophils # (Auto) 4.9 TH/MM3 Lymphocytes # (Auto) 1.9 TH/MM3 Monocytes # (Auto) 0.6 TH/MM3 Eosinophils # (Auto) 0.2 TH/MM3 Basophils # (Auto) 0.0 TH/MM3 CBC Comment DIFF FINAL Differential Comment Blood Urea Nitrogen 9 MG/DL Creatinine 0.69 MG/DL Random Glucose 81 MG/DL Total Protein 7.4 GM/DL Albumin 3.5 GM/DL Calcium Level 8.5 MG/DL Alkaline Phosphatase 319 U/L Aspartate Amino Transf (AST/SGOT) 122 U/L Alanine Aminotransferase (ALT/SGPT) 379 U/L Total Bilirubin 1.3 MG/DL Sodium Level 139 MEQ/L Potassium Level 3.6 MEQ/L Chloride Level 103 MEQ/L Carbon Dioxide Level 28.9 MEQ/L Anion Gap 7 MEQ/L Estimat Glomerular Filtration Rate 100 ML/MIN Lactic Acid Level 0.6 mmol/L Lipase 146 U/L Human Chorionic Gonadotropin, Quant LESS THAN 1 MIU/ML MDM Medical Decision Making Medical Screen Exam Complete: Yes Emergency Medical Condition: Yes Medical Record Reviewed: Yes Differential Diagnosis Choledocholithiasis, epigastric pain, pancreatitis, bile leak, abscess Narrative Course No laboratory examinations reviewed, patient has elevation in LFTs and obstructive pattern CT abdomen and pelvis shows dilated common bile duct without evidence of stones. There is no localized collection or extravasation of fluid suggestive of bile leak or abscess ) Quadrant ultrasound shows a dilated common duct but no intraductal/ choledocholithiasis seen Case discussed with Dr. Wyman from surgery cover Dr. Siegel, suggest patient be admitted to medical service with GI consult for possible ERCP Case discussed with Dr. Halley Menendez from hospital service, admitted. MRCP ordered Diagnosis Primary Impression: Epigastric abdominal pain Admitting Information Admitting Physician Requests: Admit Gio Cowart MD Dec 01, 2017 08:16
--- NOTE | 2017-12-01 08:33 | RADRPT ---
EXAM DATE/TIME: 12/01/2017 07:26 [facility] COMPARISON: No previous studies available for comparison. INDICATIONS : Right upper quadrant pain. Post cholecystectomy and ERCP. MEDICAL HISTORY : Right upper quadrant pain. Post cholecystectomy and ERCP. SURGICAL HISTORY : Cholecystectomy. ENCOUNTER: Subsequent ACUITY: 3 days PAIN SCORE: 2/10 LOCATION: Bilateral upper quadrant MEASUREMENTS: LIVER: 15.7 cm length COMMON DUCT: 10 mm RIGHT KIDNEY: 11.0 x 4.2 x 4.1 cm SPLEEN: 10.4 cm length FINDINGS: LIVER: Normal echotexture without focal lesion or ductal dilatation. COMMON DUCT: No intraluminal mass or stone visualized. GALLBLADDER: Status post cholecystectomy. PANCREAS: The visualized portions are within normal limits. RIGHT KIDNEY: No hydronephrosis, stone or mass. SPLEEN: No focal lesion. Splenule incidentally noted in the splenic hilum. CONCLUSION: Status post cholecystectomy. Otherwise unremarkable. Barry Ellington MD on December 01, 2017 at 8:28 Board Certified Radiologist. This report was verified electronically.
--- NOTE | 2017-12-01 09:20 | RADRPT ---
EXAM DATE/TIME: 12/01/2017 08:25 [facility] COMPARISON: US ABDOMEN - LIVER, December 01, 2017, 7:26. CT ABDOMEN & PELVIS W/O CONTRAST, December 01, 2017, 4:15 . MRCP W/O CONTRAST, November 27, 2017, 19:39. INDICATIONS : Obstruction. MEDICAL HISTORY : None. SURGICAL HISTORY : Cholecystectomy. ENCOUNTER: Initial ACUITY: 1 day PAIN SCORE: 5/10 LOCATION: Abdomen TECHNIQUE: Multiplanar, multisequence magnetic resonance imaging of the abdomen was performed. High-resolution 3D dataset was utilized to reconstruct maximum-intensity projection (MIP) images. FINDINGS: INTRAHEPATIC BILE DUCTS: Intrahepatic ducts are mildly diffusely prominent. EXTRAHEPATIC BILE DUCTS: Common duct measures 10-11 mm in diameter diffusely. No filling defects identified. GALLBLADDER: Status post cholecystectomy. LIVER: Normal size and signal intensity. No concerning liver lesion is identified on this non-contrast exam. PANCREAS: The main pancreatic duct is normal in size. There is no significant anatomical variant. Signal inte nsity is within normal limits. No mass is visualized on this non-contrast exam. OTHER: The remaining visualized structures demonstrate no acute abnormality on this non-contrast exam. CONCLUSION: 1. Status post cholecystectomy. 2. Mildly prominent intrahepatic and extrahepatic biliary ducts may be due to postcholecystectomy sta te. 3. Filling defects previously seen in the common duct are not seen on the current study. Barry Ellington MD on December 01, 2017 at 9:07 Board Certified Radiologist. This report was verified electronically.
[2017-12-01 09:38] LABS: AMORPHOUS SEDIMENT, URINE RARE; BACTERIA, URINE RARE /hpf; BILIRUBIN, URINE NEG (NEG); BLOOD, URINE NEG (NEG); GLUCOSE,URINE NEG (NEG); KETONE, URINE TRACE mg/dL (NEG); MUCUS URINE FEW /lpf (OCC); NITRITE,URINE NEG (NEG); PH, URINE 6.5 (5.0-8.5); SQUAMOUS EPITHELIAL CELL URINE 5 /hpf (0-5); TRANSITIONAL EPI CELLS, URINE <1 /hpf; URINE COLOR YELLOW (YELLW/STRAW); URINE LEUKOCYTE ESTERASE SMALL (NEG)
[2017-12-01] MEDS ORDERED: MORPHINE SULFATE 4 MG/ML INJ IV PUSH PRN ×2 (10:15→19:30)
[2017-12-01] MEDS ORDERED: NALOXONE HCL 0.4 MG/ML AMP IV PUSH PRN (10:15)
[2017-12-01] MEDS ORDERED: LACTULOSE SYRUP 20 GM/30 ML CUP PO PRN (10:15)
[2017-12-01] MEDS ORDERED: SENNOSIDES 8.6 MG TAB PO PRN (10:15)
[2017-12-01] MEDS ORDERED: MAGNESIUM HYDROXIDE SUSP 30 ML CUP PO PRN (10:15)
--- NOTE | 2017-12-01 10:25 | HHI.HP ---
[facility] Service [facility] Primary Care Physician Unknown Admission Diagnosis RUQ Pain s/p cholecystectomy, Poss Cholodocholithiasis Diagnoses: Travel History International Travel<30 Days: No Contact w/Intl Traveler <30 Da: No Traveled to Known Affected Are: No History of Present Illness 32-year-old female with recent cholecystectomy and ERCP for retained stone presents to the emergency department complaining of severe abdominal pain with associated nausea/vomiting. The patient had a cholecystectomy on Saturday with Dr. Siegel however her abdominal pain persisted. She then underwent an ERCP for removal of a retained common bile duct stone. The patient reports since her procedure the abdominal pain has persisted and is in fact worsening. She endorses associated nausea without emesis. She is afebrile without leukocytosis. CT of the abdomen and pelvis showed no fluid collections. Transaminases remain elevated however are trending down from 2 days ago. Review of Systems Denies fever or chills Denies blurry vision, otorrhea, rhinorrhea Denies sore throat and cough No chest pain, palpitations, shortness of breath Positive abdominal pain Denies constipation/diarrhea/vomiting. Positive nausea. Denies muscle pain/weakness No rashes Past Family Social History Past Medical History History of gallstones Past Surgical History Cholecystectomy on 11/27/17 ERCP Reported Medications Reported Meds & Active Scripts Active Reported [place] (Hydrocodone-Acetaminophen) 5 Mg-325 Mg Tab 1 Tab PO Q4H PRN Allergies: Coded Allergies: No Known Allergies (Unverified , 12/01/17) Family History Mother with diabetes mellitus, father with CAD Social History Denies alcohol, tobacco and illicit drugs Physical Exam Vital Signs Vital Signs Date Time Temp Pulse Resp B/P (MAP) Pulse Ox O2 Delivery O2 Flow Rate FiO2 12/01/17 05:50 60 18 160/102 (121) 98 Room Air 12/01/17 04:01 100 Room Air 12/01/17 03:47 98.3 69 18 123/72 (89) 97 Room Air Physical Exam GENERAL: female sitting up in bed SKIN: No rashes, ecchymoses or lesions. Cool and dry. HEAD: Atraumatic. Normocephalic. No temporal or scalp tenderness. EYES: Pupils equal round and reactive. Extraocular motions intact. No scleral icterus. No injection or drainage. ENT: Nose without bleeding, purulent drainage or septal hematoma. Throat without erythema, tonsillar hypertrophy or exudate. Uvula midline. Airway patent. NECK: Trachea midline. No JVD or lymphadenopathy. Supple, nontender, no meningeal signs. CARDIOVASCULAR: Regular rate and rhythm without murmurs, gallops, or rubs. RESPIRATORY: Clear to auscultation. Breath sounds equal bilaterally. No wheezes , rales, or rhonchi. GASTROINTESTINAL: Abdomen soft, nondistended. Exquisitely tender to palpation worse in the upper quadrants. No hepato-splenomegaly, or palpable masses. MUSCULOSKELETAL: Extremities without clubbing, cyanosis, or edema. No joint tenderness, effusion, or edema noted. No calf tenderness. NEUROLOGICAL: Awake and alert. Cranial nerves II through XII intact. Motor and sensory grossly within normal limits. Normal speech. Laboratory Laboratory Tests Test 12/01/17 04:05 12/01/17 08:00 White Blood Count 7.6 Red Blood Count 3.97 Hemoglobin 12.0 Hematocrit 34.8 Mean Corpuscular Volume 87.6 Mean Corpuscular Hemoglobin 30.2 Mean Corpuscular Hemoglobin Concent 34.5 Red Cell Distribution Width 13.7 Platelet Count 103 Mean Platelet Volume 10.9 Neutrophils (%) (Auto) 64.5 Lymphocytes (%) (Auto) 24.5 Monocytes (%) (Auto) 8.2 Eosinophils (%) (Auto) 2.4 Basophils (%) (Auto) 0.4 Neutrophils # (Auto) 4.9 Lymphocytes # (Auto) 1.9 Monocytes # (Auto) 0.6 Eosinophils # (Auto) 0.2 Basophils # (Auto) 0.0 CBC Comment DIFF FINAL Differential Comment Blood Urea Nitrogen 9 Creatinine 0.69 Random Glucose 81 Total Protein 7.4 Albumin 3.5 Calcium Level 8.5 Alkaline Phosphatase 319 Aspartate Amino Transf (AST/SGOT) 122 Alanine Aminotransferase (ALT/SGPT) 379 Total Bilirubin 1.3 Sodium Level 139 Potassium Level 3.6 Chloride Level 103 Carbon Dioxide Level 28.9 Anion Gap 7 Estimat Glomerular Filtration Rate 100 Lactic Acid Level 0.6 Lipase 146 Human Chorionic Gonadotropin, Quant LESS THAN 1 Urine Color YELLOW Urine Turbidity CLEAR Urine pH 6.5 Urine Specific [place] 1.010 Urine Protein NEG Urine Glucose (UA) NEG Urine Ketones TRACE Urine Occult Blood NEG Urine Nitrite NEG Urine Bilirubin NEG Urine Urobilinogen LESS THAN 2.0 Urine Leukocyte Esterase SMALL Urine RBC 1 Urine WBC 2 Urine Squamous Epithelial Cells 5 Urine Transitional Epithelial Cells <1 Urine Amorphous Sediment RARE Urine Bacteria RARE Urine Mucus FEW Microscopic Urinalysis Comment CULT NOT INDICATED Result Diagram: 12/01/1740412/01/17404 Caprini VTE Risk Assessment Caprini VTE Risk Assessment: No/Low Risk (score <= 1) Caprini Risk Assessment Model Point Value = 1 Point Value = 2 Point Value = 3 Point Value = 5 Age 41-60 Minor surgery BMI > 25 kg/m2 Swollen legs Varicose veins or History of unexplained or recurrent spontaneous Oral contraceptives or hormone replacement Sepsis (< 1 month) Serious lung disease, including pneumonia (< 1 month) Abnormal pulmonary function Acute myocardial infarction Congestive heart failure (< 1 month) History of inflammatory bowel disease Medical patient at bed rest Age 61-74 Arthroscopic surgery Major open surgery (> 45 min) Laparoscopic surgery (> 45 min) Malignancy Confined to bed (> 72 hours) Immobilizing plaster cast Central venous access Age >= 75 History of VTE Family history of VTE Factor V Leiden Prothrombin [id number] Lupus anticoagulant Anticardiolipin antibodies Elevated serum homocysteine Heparin-induced thrombocytopenia Other congenital or acquired thrombophilia Stroke (< 1 month) Elective arthroplasty Hip, pelvis, or leg fracture Acute spinal cord injury (< 1 month) Prophylaxis Regimen Total Risk Factor Score Risk Level Prophylaxis Regimen 0-1 Low Early ambulation 2 Moderate Order ONE of the following: *Sequential Compression Device (SCD) *Heparin 5000 units SQ BID 3-4 Higher Order ONE of the following medications: *Heparin 5000 units SQ TID *Enoxaparin/Lovenox 40 mg SQ daily (WT < 150 kg, CrCl > 30 mL/min) *Enoxaparin/Lovenox 30 mg SQ daily (WT < 150 kg, CrCl > 10-29 mL/min) *Enoxaparin/Lovenox 30 mg SQ BID (WT < 150 kg, CrCl > 30 mL/min) AND/OR *Sequential Compression Device (SCD) 5 or more Highest Order ONE of the following medications: *Heparin 5000 units SQ TID (Preferred with Epidurals) *Enoxaparin/Lovenox 40 mg SQ daily (WT < 150 kg, CrCl > 30 mL/min) *Enoxaparin/Lovenox 30 mg SQ daily (WT < 150 kg, CrCl > 10-29 mL/min) *Enoxaparin/Lovenox 30 mg SQ BID (WT < 150 kg, CrCl > 30 mL/min) AND *Sequential Compression Device (SCD) Assessment and Plan Assessment and Plan Assessment/plan: 1. Abdominal pain status post cholecystectomy/ERCP Patient's LFTs remain elevated with AST/ALT of 122/379, T bili 1.3, Alk Phos 319 CT of the abdomen and pelvis significant for postcholecystectomy changes no fluid collections present MRCP showed mildly prominent intrahepatic and extrahepatic biliary ducts with resolution of previous filling defects seen in the common bile duct Gastroenterology consulted, appreciate recommendations Morphine for pain Nothing by mouth Monitor for signs of postoperative infection FEN NPO Electrolytes: monitor and replete prn SCDs Halley Menendez MD Dec 01, 2017 10:25
[2017-12-01] MEDS: SODIUM CHLOR 0.9% 1000 ML INJ 1,000 ML IV SCH ×2 (10:47→23:50)
[2017-12-01] MEDS: ONDANSETRON HCL 4 MG/2 ML VIAL IVP PRN ×2 (11:22→18:51)
--- NOTE | 2017-12-01 14:05 | MB ---
cc: ELIDA DANIELLE M.D., LOUIS M. MD KIRKMAN,CARRI LEDESMA MD, M.D. DATE OF CONSULTATION: 12/01/2017. REASON FOR CONSULTATION: I have been asked to see the patient at the request of Dr. Menendez for evaluation of abdominal pain. DATE OF : 1985. HISTORY OF PRESENT ILLNESS: The patient is a pleasant 32-year-old female whom I saw earlier last week. She had presented with symptomatic cholelithiasis and she underwent a laparoscopic cholecystectomy. There was accomplished without any major problems . However, intraoperative cholangiogram was done which revealed no flow of the contrast in the small bowel. No filling defects were noted. An assessment MRCP was done which showed a possibility of either a stone or a bubble in the distal bile duct. Her liver function tests were also abnormal. Subsequently, Dr. César Doan did an endoscopic ultrasound, which showed a filling defect in the distal bile duct. Eventually ERCP was done, and the filling defect turned out to be a common bile duct stone and a sphincterotomy was done and the stone was removed. The very next day her liver function tests were still quite elevated but much improved. The patient was discharged. Since the patient went home, she has continued to have pain and it worsened. It is epigastric and colicky and associated with intense nausea. She has had dry heaves but really not much vomiting. The pain radiates to her back. There has been no hematemesis, melena, hematochezia, diarrhea or constipation. She came to emergency room and eventually I was asked to see her. In the emergency room, she did have several imaging studies and see below that did not show the etiology of her symptoms. The patient is not taking any aspirin. PAST MEDICAL HISTORY: Her past medical history includes: 1. Gallstones. 2. Common bile duct stones. 3. Elevated liver function tests. 4. Asthma. PAST SURGICAL HISTORY: Gallbladder removal with ERCP. ALLERGIES: NO KNOWN ALLERGIES. FAMILY HISTORY: Family history is not significant for colon cancer, colon polyps, gallbladder disease. SOCIAL HISTORY: She does not smoke or drink. REVIEW OF SYSTEMS: CONSTITUTIONAL: At this time, she denies any fever or chills or shortness of breath. CARDIOPULMONARY: No chest pain or palpitations or wheezing. GASTROINTESTINAL: Please see above. An otherwise unremarkable twelve-point review of systems. MEDICATIONS: Her medications at this time include: 1. Maria Del Carmen-Colace. 2. Morphine. 3. Tylenol. 4. Zofran. 5. Narcan. 6. Milk of magnesia. 7. Senokot. 8. Dulcolax. 9. Lactulose. PHYSICAL EXAMINATION: VITAL SIGNS: Blood pressure is 118/82, pulse 67, respiratory rate of 20, temperature is 97.9. GENERAL: In general, she is a well-developed, well-nourished white female holding an emesis basin. HEAD, EYES, EARS, NOSE, THROAT: Her pupils are equal, round and reactive to light. No obvious scleral icterus. The oropharynx had dental caries. No tongue deviation. No Candidal lesions. Hearing is intact. NECK: The neck is supple. No thyromegaly or lymphadenopathy. LUNGS: Clear to auscultation and percussion. HEART: Regular rate and rhythm. No murmurs are heard. ABDOMEN: Abdomen soft. There is epigastric tenderness noted but no rebound tenderness. No organomegaly or masses. Her bowel sounds are positive in the upper quadrants. RECTAL: Exam not done. EXTREMITIES: No cyanosis, clubbing or edema. 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 SKIN: Warm and moist without jaundice. NEUROLOGIC: She is alert and oriented times three. No gross sensory or motor deficits. DATABASE: Today her white blood count was 7600, hemoglobin 12.0, hematocrit 34.8, MCV of 87.6 and platelet count of 103,000 which is low. Her total bilirubin is 1.3, SGOT of 122, SGPT of 379, alkaline phosphatase of 319, lipase of 146 which is normal, BUN of 9, creatinine 0.69. Of note on her previous admission earlier this week, her SGOT was 343 and 207 and SGPT was 806 and 544 and her alkaline phosphatase was 337 and 344. Total bilirubin was 0.7. Other important testing includes: Liver ultrasound, which was unremarkable - she is status post cholecystectomy. An MRCP was done this morning and it shows she status post cholecystectomy. There is a mildly prominent intrahepatic and extrahepatic ducts. The previously-mentioned filling defects are no longer seen. A CT scan of the abdomen and pelvis was done and reveals some postsurgical changes; otherwise no acute pathology. There is no dilatation of the biliary tree. There is some air droplets noted in the gallbladder fossa consistent with recent surgery. No free fluid or loculated fluid collections are demonstrated. IMPRESSION: 1. Epigastric pain with nausea -- etiology unclear. She is status post laparoscopic cholecystectomy as well as ERCP. The patient understands this may be post ERCP as well as laparoscopic cholecystectomy pain. However, also the differential includes spasm or edema of the sphincterotomy site. A bile leak is also a possibility but I think this is lower on the differential since there is no obvious fluid in the abdominal cavity. 2. Increased liver function tests -- they are still quite elevated but they are improved from before. RECOMMENDATIONS: 1. We talked about simple observation, bowel rest and IV fluids and see how she does versus being more proactive versus doing a HIDA scan to see if she has a bile leak or some intermittent spasm of the distal bile duct / sphincterotomy site. They would like to go ahead and pursue the HIDA scan. They understand there is a small amount of radiation involved (the patient is breast feeding). 2. Further recommendations depending on how she does. 3. Await surgical advice also. MD JOSSELYN Corral/ZABRINA /12:58 PM /1:37 PM [email or web address]
--- NOTE | 2017-12-01 14:25 | MB ---
cc: ELIDA DANIELLE M.D. DATE OF CONSULTATION: 12/01/2017. REASON FOR CONSULTATION: Persistent epigastric pain. HISTORY OF PRESENT ILLNESS: The patient is a 32-year-old female who underwent laparoscopic cholecystectomy on November 27 and was found to have a small common duct stone. This was removed by ERCP November 28, and she went home on November 29. She continued to have significant epigastric pain and was readmitted last night with unremitting pain. The patient had imaging which demonstrated no acute findings. Liver function tests remain slightly elevated with a bilirubin slightly above normal. The patient has received IV morphine and has had some relief from this. The patient has been seen by Dr. Anaya, and it is felt that she has some postprocedure pain but not pancreatitis per se. PAST MEDICAL HISTORY: Past medical history is present in the chart from the patient's previous admission. ALLERGIES: The patient has no known allergies. MEDICATIONS: She is only taking hydrocodone for pain at home. 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 PHYSICAL EXAMINATION: GENERAL: Physical exam reveals a female who is uncomfortable. She has some epigastric tenderness to palpation. CHEST: Clear to auscultation. CARDIAC: Cardiac exam reveals regular rate and rhythm. Pulses are intact. NEUROLOGIC: Exam is nonfocal. LABORATORY STUDIES: Laboratory values demonstrate WBCs of 7.6. Liver function tests demonstrate bilirubin of 1.3, AST 122, ALT 379, alkaline phosphatase 319. Other visit demonstrates that all labs have decreased slightly except for bilirubin which is up to 1.3. IMAGING STUDIES: Imaging studies once again demonstrates just very minimal fluid in the gallbladder fossa consistent with recent surgery with two droplets of air. ASSESSMENT: Post cholecystectomy and post ERCP pain. PLAN: 1. Continue IV pain medicine as needed. 2. Dr. Anaya had suggested considering HIDA scan; if the patient continues to have pain, this could be ordered tomorrow. I will follow with you. I will increase IV fluids for now to improve hydration and would keep the patient on an NPO status or sips of clears only. MD SERGEI Cast/JCC /1:51 PM /2:14 PM
[2017-12-01] MEDS: ACETAMINOPHEN 325 MG TAB PO PRN ×2 (14:31→18:50)
[2017-12-01] MEDS: MORPHINE SULFATE 2 MG/ML INJ IV PUSH PRN ×3 (17:03→21:32)
[2017-12-01] MEDS ORDERED: PROCHLORPERAZINE INJ 10 MG/2 ML VIAL IV PUSH PRN (19:30)
[2017-12-01] MEDS: FAMOTIDINE 20 MG TAB PO SCH (20:35)
[2017-12-01] MEDS: DOCUSATE SODIUM 50 MG/SENNA 8.6 MG TAB PO SCH (20:41)
[2017-12-01] MEDS: SODIUM CHLORIDE 0.9% FLUSH 10 ML FLUSH IV FLUSH SCH (21:00)
[2017-12-01] MEDS: BISACODYL 10 MG SUPP RECTAL PRN (21:42)
[2017-12-02] MEDS ORDERED: KETOROLAC TROMETHAMINE 30 MG/ML (IVP) VIAL IV PUSH ONE (00:30)
[2017-12-02] MEDS: MORPHINE SULFATE 2 MG/ML INJ IV PUSH PRN ×2 (00:51→02:45)
[2017-12-02] MEDS ORDERED: HYDROmorphone HCL PF 1 MG/ML VIAL IV PUSH ONE ×3 (03:15→09:00)
[2017-12-02 03:25] LABS: AUTOMATED NEUTROPHIL # 4.7 TH/MM3 (1.8-7.7); BASOPHIL % 0.3 % (0.0-2.0); EOSINOPHIL # 0.2 TH/MM3 (0-0.4); HEMATOCRIT 33.5 % (35.0-46.0); HEMOGLOBIN 11.6 GM/DL (11.6-15.3); LYMPH % 21.7 % (9.0-44.0); LYMPHOCYTE # 1.5 TH/MM3 (1.0-4.8); MEAN CELL VOLUME 88.6 FL (80.0-100.0); MEAN CORPUSCULAR HEMOGLOBIN 30.8 PG (27.0-34.0); MEAN CORPUSCULAR HGB CONC 34.7 % (32.0-36.0); MEAN PLATELET VOLUME 9.2 FL (7.0-11.0); MONO % 6.6 % (0.0-8.0); MONOCYTE # 0.5 TH/MM3 (0-0.9); NEUT % 68.4 % (16.0-70.0); PLATELET COUNT 132 TH/MM3 (150-450); RED BLOOD COUNT 3.78 MIL/MM3 (4.00-5.30); RED CELL DISTRIBUTION WIDTH 13.7 % (11.6-17.2); WHITE BLOOD COUNT 6.9 TH/MM3 (4.0-11.0)
[2017-12-02 03:28] LABS: ALBUMIN 3.3 GM/DL (3.4-5.0); AMYLASE 38 U/L (25-115); AST (GOT) 70 U/L (15-37); BLOOD UREA NITROGEN 8 MG/DL (7-18); CALCIUM 8.3 MG/DL (8.5-10.1); CHLORIDE 104 MEQ/L (98-107); CREATININE 0.43 MG/DL (0.50-1.00); GLOMERULAR FILTRATION RATE 172 ML/MIN (>89); GLUCOSE,RANDOM 63 MG/DL (74-106); LIPASE 134 U/L (73-393); SODIUM (NA) 139 MEQ/L (136-145)
[2017-12-02 03:32] LABS: ALKALINE PHOSPHATASE 361 U/L (45-117); ALT (GPT) 285 U/L (10-53); TOTAL BILIRUBIN ADULT 1.8 MG/DL (0.2-1.0); TOTAL PROTEIN 6.9 GM/DL (6.4-8.2)
[2017-12-02 04:00] VITALS: BP 119/78; PULSE 79; RESP 16; TEMP 98.1; O2SAT 98
[2017-12-02] MEDS: ONDANSETRON HCL 4 MG/2 ML VIAL IVP PRN (04:41)
[2017-12-02] MEDS ORDERED: LORazepam 2 MG/ML VIAL IV PUSH PRN (05:15)
[2017-12-02] MEDS ORDERED: KETOROLAC TROMETHAMINE 30 MG/ML (IVP) VIAL IV PUSH SCH (06:30)
[2017-12-02] MEDS: KETOROLAC TROMETHAMINE 30 MG/ML (IVP) VIAL IV PUSH SCH ×3 (08:23→20:06)
[2017-12-02 08:25] VITALS: BP 122/83; PULSE 76; RESP 18; TEMP 98.3; O2SAT 99
[2017-12-02] MEDS: SODIUM CHLORIDE 0.9% FLUSH 10 ML FLUSH IV FLUSH SCH ×2 (09:00→21:00)
[2017-12-02] MEDS: SODIUM CHLOR 0.9% 1000 ML INJ 1,000 ML IV SCH ×2 (09:12→22:23)
[2017-12-02] MEDS: FAMOTIDINE 20 MG TAB PO SCH ×2 (09:12→21:00)
[2017-12-02] MEDS ORDERED: SINCALIDE 5 MCG/5 ML VIAL IV ONE (10:45)
--- NOTE | 2017-12-02 10:58 | HHI.PR ---
cc: Bryon Siegel MD Subjective Subjective Notes Resting in bed Reports pain comes and goes Objective Vitals/I&O Vital Signs Date Time Temp Pulse Resp B/P (MAP) Pulse Ox O2 Delivery O2 Flow Rate FiO2 12/02/17 08:25 98.3 76 18 122/83 (96) 99 12/01/17 05:50 Room Air Labs Laboratory Tests Test 12/02/17 03:05 White Blood Count 6.9 Red Blood Count 3.78 Hemoglobin 11.6 Hematocrit 33.5 Mean Corpuscular Volume 88.6 Mean Corpuscular Hemoglobin 30.8 Mean Corpuscular Hemoglobin Concent 34.7 Red Cell Distribution Width 13.7 Platelet Count 132 Mean Platelet Volume 9.2 Neutrophils (%) (Auto) 68.4 Lymphocytes (%) (Auto) 21.7 Monocytes (%) (Auto) 6.6 Eosinophils (%) (Auto) 3.0 Basophils (%) (Auto) 0.3 Neutrophils # (Auto) 4.7 Lymphocytes # (Auto) 1.5 Monocytes # (Auto) 0.5 Eosinophils # (Auto) 0.2 Basophils # (Auto) 0.0 CBC Comment DIFF FINAL Differential Comment Blood Urea Nitrogen 8 Creatinine 0.43 Random Glucose 63 Total Protein 6.9 Albumin 3.3 Calcium Level 8.3 Alkaline Phosphatase 361 Aspartate Amino Transf (AST/SGOT) 70 Alanine Aminotransferase (ALT/SGPT) 285 Total Bilirubin 1.8 Sodium Level 139 Potassium Level 3.6 Chloride Level 104 Carbon Dioxide Level 25.0 Anion Gap 10 Estimat Glomerular Filtration Rate 172 Amylase Level 38 Lipase 134 Cardiovascular: Regular Lungs: Clear Abdomen: Other (lap sites c/d/i), Post-op tenderness Extremities: No edema A/P Assessment and Plan 32 year old female s/p lap cholecystectomy on Nov 27; post op ERCP on ; back with abdominal pain -Continue IVF -IV pain control -NPO -HIDA planned for today -OOB and mobilize as tolerated Attending Note - Dr. Robbin Still painful HIDA completed; no leaks; good flow of radionuclide into duodenum Likely pain from sphincterotomy; should get better next few days The exam, history, and the medical decision-making described in the above note were completed with the assistance of the mid-level provider. I reviewed and agree with the findings presented. I attest that I had a [id number] encounter with the patient on the same day, and personally performed and documented my assessment and findings in the medical record. [place] Colon Dec 02, 2017 10:58 Bryon Siegel MD Dec 03, 2017 19:50
--- NOTE | 2017-12-02 11:04 | HHI.PR ---
Subjective Remarks Follow-up Abdominal pain postcholecystectomy and rule out bile leak 12/02/17-patient seen and examined, still with abdominal pain and currently nothing by mouth. Heading for HIDA scan this a.m. Objective Vitals Vital Signs Date Time Temp Pulse Resp B/P (MAP) Pulse Ox O2 Delivery O2 Flow Rate FiO2 12/02/17 08:25 98.3 76 18 122/83 (96) 99 12/02/17 04:00 98.1 79 16 119/78 (92) 98 12/01/17 23:30 97.9 64 16 111/70 (84) 97 12/01/17 20:14 98.7 67 18 143/92 (109) 99 12/01/17 16:10 98.0 62 20 99 12/01/17 11:51 97.9 67 20 118/82 (94) 100 12/01/17 11:29 I/O 12/01/17 12/01/17 12/01/17 12/02/17 12/02/17 12/02/17 07:00 15:00 23:00 07:00 15:00 23:00 Intake Total 1000 ml 900 ml 1200 ml Balance 1000 ml 900 ml 1200 ml Intake Oral 0 ml IV Total 1000 ml 900 ml 1200 ml # Voids 2 1 1 # Bowel Movements 1 Result Diagram: 12/02/17 0305 12/02/17 0305 Imaging Last Impressions Abdomen/Pelvis CT 12/01/17 0358 Signed Impressions: Service Date/Time: Friday, December 01, 2017 04:15 - CONCLUSION: 1. Status post recent cholecystectomy with some mild postsurgical changes. 2. Otherwise, no acute pathology. Jairo Rivas MD Liver Ultrasound 12/01/17 0000 Signed Impressions: Service Date/Time: Friday, December 01, 2017 07:26 - CONCLUSION: Status post cholecystectomy. Otherwise unremarkable. Barry Ellington MD Cholangiopancreatography MRI 12/01/17 0000 Signed Impressions: Service Date/Time: Friday, December 01, 2017 08:25 - CONCLUSION: 1. Status post cholecystectomy. 2. Mildly prominent intrahepatic and extrahepatic biliary ducts may be due to postcholecystectomy state. 3. Filling defects previously seen in the common duct are not seen on the current study. Barry Ellington MD Objective Remarks GENERAL: NAD SKIN: Warm and dry. HEAD: Normocephalic. EYES: No scleral icterus. No injection or drainage. NECK: Supple, trachea midline. No JVD or lymphadenopathy. CARDIOVASCULAR: Regular rate and rhythm without murmurs, gallops, or rubs. RESPIRATORY: Breath sounds equal bilaterally. No accessory muscle use. GASTROINTESTINAL: Abdomen soft, mildly tender, nondistended. +BS MUSCULOSKELETAL: No cyanosis, or edema. BACK: Nontender without obvious deformity. No CVA tenderness. A/P Problem List: (1) Epigastric abdominal pain ICD Code: R10.13 - Epigastric pain Status: Acute Assessment and Plan 32 year-old female with 1. Abdominal pain status post cholecystectomy/ERCP Rule out bile leak CT of the abdomen and pelvis significant for postcholecystectomy changes no fluid collections present MRCP showed mildly prominent intrahepatic and extrahepatic biliary ducts with resolution of previous filling defects seen in the common bile duct Appreciate input from general surgery, gastroenterology HIDA scan pending this a.m. Continue parenteral pain management, nothing by mouth Monitor total and direct bili, LFTs DVT prophylaxis: Bilateral SCDs GI prophylaxis: PPI Darin Dumas MD Dec 02, 2017 11:04
[2017-12-02 11:55] VITALS: BP 120/78; PULSE 94; RESP 16; TEMP 98.6; O2SAT 98
--- NOTE | 2017-12-02 11:56 | RADRPT ---
EXAM DATE/TIME: 12/02/2017 00:00 [facility] COMPARISON: No previous studies available for comparison. INDICATIONS : Cholecystectomy. Abdominal pain. Bile leak. DOSE: 4.2 mCi Tc99m Mebrofenin IV MEDICATION: 1.2 mcg Cholecystokinin IV; No symptomatic response. Cholecystokinin was administered by slow infusion over 8 minutes beginning at 35 minutes. MEDICAL HISTORY : None SURGICAL HISTORY : Cholecystectomy. ENCOUNTER: Initial ACUITY: 2 days PAIN SCALE: 6/10 LOCATION: Right upper quadrant TECHNIQUE: Following the intravenous administration of radiotracer, dynamic sequential image were performed with continuous acquisition. Time-activity curves were generated. FINDINGS: HEPATIIC KINETICS: There is prompt uptake of radiotracer in the liver. No focal defects are seen. There is normal rate of washout from the hepatic parenchyma. BILIARY CLEARANCE: Activity is first seen in the extrahepatic biliary system at 10 minutes. There is normal excretion i nto the small bowel. GALLBLADDER: Surgical absence BILIARY ENTERIC REFLUX: There is mild biliary enteric reflux. CLINICAL: The patient was asymptomatic after Cholecystokinin administration. CONCLUSION: 1. No definite bile leak identified. Shankar Elmore MD on December 02, 2017 at 11:51 Board Certified Radiologist. This report was verified electronically.
[2017-12-02] MEDS: BISACODYL 10 MG SUPP RECTAL PRN (15:12)
[2017-12-02 15:14] VITALS: BP 116/80; PULSE 68; RESP 16; TEMP 98.7; O2SAT 99
--- NOTE | 2017-12-02 18:14 | HHI.GIFU ---
GI Follow-up Note Consult Follow-up Subjective: Patient laying in bed comfortably. feeling better now. He did tolerate clear liquids. She is aware her HIDA scan did not show any bile leak Objective: PHYSICAL EXAMINATION: Vitals signs stable No fever HEENT: Pupils round and reactive to light; normocephalic; atraumatic; no jaundice. Throat is clear. NECK: Neck is supple, no JVD, no lymphadenopathy. CHEST: Chest is clear to auscultation and percussion. CARDIAC: Regular rate and rhythm with no murmur gallop or rubs. ABDOMEN: Soft, nondistended, nontender; no hepatosplenomegaly; bowel sounds are present in all four quadrants. EXTREMITIES: No edema. SKIN: no rash; no jaundice. MANAGER WELLNESS: No focal deficits; alert and oriented times three. Available Data (labs, X- Rays, Procedues) : LFT still elevated and some are improved ASSESSMENT/PLAN: 1. epigastric painbetter 2. elevated LFTs. Her transaminases are better. Alkaline phosphatase slightly worse and bilirubin slightly worse. The alkaline phosphatase use the lggs behind the transaminases by several days/weeks PLAN: 1. advance to full liquid diet. if tolerating diet she can be advanced to a low -fat diet. 2. followup LFTs. Patient and her family are aware when she gets back home to [place] she needs to followup with Dr. chan to make sure her LFTs come back to normal. if the do not then she needs a workup to find out why she has increased LFTs such as autoimmune hepatitis, metabolic processes, viral processes etc. It was a pleasure seeing HarjinderaugustLynette. Thank you for this consult. Entered by: Wing Olson MD Dec 02, 2017 18:14
[2017-12-02 19:55] VITALS: BP 107/73; PULSE 65; RESP 18; TEMP 99.2; O2SAT 98
[2017-12-02] MEDS: DOCUSATE SODIUM 50 MG/SENNA 8.6 MG TAB PO SCH (21:00)
[2017-12-02 23:00] VITALS: BP 114/77; PULSE 66; RESP 18; TEMP 98.8; O2SAT 98
[2017-12-02] MEDS: ACETAMINOPHEN 325 MG TAB PO PRN (23:04)
[2017-12-03] MEDS: KETOROLAC TROMETHAMINE 30 MG/ML (IVP) VIAL IV PUSH SCH ×2 (02:00→08:00)
[2017-12-03 03:45] VITALS: BP 98/63; PULSE 60; RESP 16; TEMP 97.9; O2SAT 96
[2017-12-03 08:10] VITALS: BP 118/83; PULSE 66; RESP 18; TEMP 98; O2SAT 98
[2017-12-03] MEDS: DOCUSATE SODIUM 50 MG/SENNA 8.6 MG TAB PO SCH (08:19)
[2017-12-03] MEDS: SODIUM CHLOR 0.9% 1000 ML INJ 1,000 ML IV SCH (08:20)
[2017-12-03] MEDS: SODIUM CHLORIDE 0.9% FLUSH 10 ML FLUSH IV FLUSH SCH (08:26)
[2017-12-03] MEDS: FAMOTIDINE 20 MG TAB PO SCH (08:26)
--- NOTE | 2017-12-03 09:48 | HHI.PR ---
Subjective Remarks Follow-up Abdominal pain postcholecystectomy and rule out bile leak 12/02/17-patient seen and examined, still with abdominal pain and currently nothing by mouth. Heading for HIDA scan this a.m. 12/03/17-patient seen and examined, denies any significant abdominal pain. LFTs pending this morning. HIDA scan on 12/02/17 without any definite bile leak Objective Vitals Vital Signs Date Time Temp Pulse Resp B/P (MAP) Pulse Ox O2 Delivery O2 Flow Rate FiO2 12/03/17 08:10 98.0 66 18 118/83 (95) 98 12/03/17 03:45 97.9 60 16 98/63 (75) 96 12/02/17 23:00 98.8 66 18 114/77 (89) 98 12/02/17 19:55 99.2 65 18 107/73 (84) 98 12/02/17 15:14 98.7 68 16 116/80 (92) 99 12/02/17 11:55 98.6 94 16 120/78 (92) 98 I/O 12/02/17 12/02/17 12/02/17 12/03/17 12/03/17 12/03/17 07:00 15:00 23:00 07:00 15:00 23:00 Intake Total 1200 ml 90 ml 1144 ml 1251 ml Balance 1200 ml 90 ml 1144 ml 1251 ml Intake Oral 0 ml 90 ml 240 ml 120 ml IV Total 1200 ml 904 ml 1131 ml # Voids 1 2 1 1 # Bowel Movements 1 1 1 Result Diagram: 12/02/17 0305 12/02/17 0305 Imaging Last Impressions Hepatobiliary Scan Nuclear Medicine 12/02/17 0000 Signed Impressions: Service Date/Time: Saturday, December 02, 2017 00:00 - CONCLUSION: 1. No definite bile leak identified. Shankar Elmore MD Abdomen/Pelvis CT 12/01/17 0358 Signed Impressions: Service Date/Time: Friday, December 01, 2017 04:15 - CONCLUSION: 1. Status post recent cholecystectomy with some mild postsurgical changes. 2. Otherwise, no acute pathology. Jairo Rivas MD Liver Ultrasound 12/01/17 0000 Signed Impressions: Service Date/Time: Friday, December 01, 2017 07:26 - CONCLUSION: Status post cholecystectomy. Otherwise unremarkable. Barry Ellington MD Cholangiopancreatography MRI 12/01/17 0000 Signed Impressions: Service Date/Time: Friday, December 01, 2017 08:25 - CONCLUSION: 1. Status post cholecystectomy. 2. Mildly prominent intrahepatic and extrahepatic biliary ducts may be due to postcholecystectomy state. 3. Filling defects previously seen in the common duct are not seen on the current study. Barry Ellington MD Objective Remarks GENERAL: NAD SKIN: Warm and dry. HEAD: Normocephalic. EYES: No scleral icterus. No injection or drainage. NECK: Supple, trachea midline. No JVD or lymphadenopathy. CARDIOVASCULAR: Regular rate and rhythm without murmurs, gallops, or rubs. RESPIRATORY: Breath sounds equal bilaterally. No accessory muscle use. GASTROINTESTINAL: Abdomen soft, non tender, nondistended. +BS MUSCULOSKELETAL: No cyanosis, or edema. BACK: Nontender without obvious deformity. No CVA tenderness. Procedures none A/P Problem List: (1) Epigastric abdominal pain ICD Code: R10.13 - Epigastric pain Status: Acute Assessment and Plan 32 year-old female with 1. Abdominal pain status post cholecystectomy/ERCP CT of the abdomen and pelvis significant for postcholecystectomy changes no fluid collections present MRCP showed mildly prominent intrahepatic and extrahepatic biliary ducts with resolution of previous filling defects seen in the common bile duct Appreciate input from general surgery, gastroenterology HIDA without any definite bile leak Continue parenteral pain management, Regular diet Monitor total and direct bili, LFTs DVT prophylaxis: Bilateral SCDs GI prophylaxis: PPI Darin Dumas MD Dec 03, 2017 09:48
[2017-12-03 10:28] LABS: ALT (GPT) 241 U/L (10-53); AST (GOT) 56 U/L (15-37); BICARBONATE 24.4 MEQ/L (21.0-32.0); CALCIUM 8.7 MG/DL (8.5-10.1); CHLORIDE 107 MEQ/L (98-107); CREATININE 0.51 MG/DL (0.50-1.00); DIRECT BILIRUBIN ADULT 0.3 MG/DL (0.0-0.2); GLOMERULAR FILTRATION RATE 142 ML/MIN (>89); GLUCOSE,RANDOM 80 MG/DL (74-106); SODIUM (NA) 140 MEQ/L (136-145)
[2017-12-03 10:35] LABS: ALKALINE PHOSPHATASE 441 U/L (45-117); BLOOD UREA NITROGEN 7 MG/DL (7-18); TOTAL BILIRUBIN ADULT 0.8 MG/DL (0.2-1.0); TOTAL PROTEIN 6.8 GM/DL (6.4-8.2)
[2017-12-03] MEDS ORDERED: NORC5TAB PO (10:43)
--- NOTE | 2017-12-03 11:03 | HHI.PR ---
cc: Bryon Siegel MD Subjective Subjective Notes Resting in bed Almost complete resolution of abdominal pain Objective Vitals/I&O Vital Signs Date Time Temp Pulse Resp B/P (MAP) Pulse Ox O2 Delivery O2 Flow Rate FiO2 12/03/17 08:10 98.0 66 18 118/83 (95) 98 12/01/17 05:50 Room Air Labs Laboratory Tests Test 12/03/17 08:45 Blood Urea Nitrogen 7 Creatinine 0.51 Random Glucose 80 Total Protein 6.8 Albumin 3.0 Calcium Level 8.7 Alkaline Phosphatase 441 Aspartate Amino Transf (AST/SGOT) 56 Alanine Aminotransferase (ALT/SGPT) 241 Total Bilirubin 0.8 Direct Bilirubin 0.3 Sodium Level 140 Potassium Level 3.8 Chloride Level 107 Carbon Dioxide Level 24.4 Anion Gap 9 Estimat Glomerular Filtration Rate 142 Cardiovascular: Regular Lungs: Clear Abdomen: Other (lap sites c/d/i with Steri Strips in place ) Extremities: No edema A/P Assessment and Plan 32 year old female s/p lap cholecystectomy on Nov 27; post op ERCP on with pain, now resolved this AM -DC IVF -[place] for pain -Regular diet -HIDA shows no leaks -OOB and mobilize as tolerated -GS clear for DC -Follow up in the office Attending Note - Dr. Siegel Pain resolved Steri strips dry Discharge today Instructions given The exam, history, and the medical decision-making described in the above note were completed with the assistance of the mid-level provider. I reviewed and agree with the findings presented. I attest that I had a [id number] encounter with the patient on the same day, and personally performed and documented my assessment and findings in the medical record. [place] Colon Dec 03, 2017 11:03 Bryon Siegel MD Dec 03, 2017 20:01
[2017-12-03 11:20] VITALS: BP 125/79; PULSE 58; RESP 18; TEMP 98.5; O2SAT 98
--- NOTE | 2017-12-03 11:30 | HHI.DS ---
Discharge Summary Admission Date Dec 01, 2017 at 08:09 Discharge Date: Dec 03, 2017 Admitting Diagnosis RUQ Pain s/p cholecystectomy, Poss Cholodocholithiasis (1) Epigastric abdominal pain ICD Code: R10.13 - Epigastric pain Status: Acute Procedures none Brief History - From Admission 32-year-old female with recent cholecystectomy and ERCP for retained stone presents to the emergency department complaining of severe abdominal pain with associated nausea/vomiting. The patient had a cholecystectomy on Saturday with Dr. Siegel however her abdominal pain persisted. She then underwent an ERCP for removal of a retained common bile duct stone. The patient reports since her procedure the abdominal pain has persisted and is in fact worsening. She endorses associated nausea without emesis. She is afebrile without leukocytosis. CT of the abdomen and pelvis showed no fluid collections. Transaminases remain elevated however are trending down from 2 days ago. CBC/BMP: 12/02/17 0305 12/03/17 0845 Significant Findings Laboratory Tests Test 12/01/17 04:05 12/01/17 08:00 12/02/17 03:05 12/03/17 08:45 Red Blood Count 3.97 MIL/MM3 (4.00-5.30) 3.78 MIL/MM3 (4.00-5.30) Hematocrit 34.8 % (35.0-46.0) 33.5 % (35.0-46.0) Platelet Count 103 TH/MM3 (150-450) 132 TH/MM3 (150-450) Monocytes (%) (Auto) 8.2 % (0.0-8.0) Alkaline Phosphatase 319 U/L (45-117) 361 U/L (45-117) 441 U/L (45-117) Aspartate Amino Transf (AST/SGOT) 122 U/L (15-37) 70 U/L (15-37) 56 U/L (15-37) Alanine Aminotransferase (ALT/SGPT) 379 U/L (10-53) 285 U/L (10-53) 241 U/L (10-53) Total Bilirubin 1.3 MG/DL (0.2-1.0) 1.8 MG/DL (0.2-1.0) Urine Ketones TRACE mg/dL (NEG) Urine Leukocyte Esterase SMALL (NEG) Urine Bacteria RARE /hpf (NONE) Urine Mucus FEW /lpf (OCC) Creatinine 0.43 MG/DL (0.50-1.00) Random Glucose 63 MG/DL (74-106) Albumin 3.3 GM/DL (3.4-5.0) 3.0 GM/DL (3.4-5.0) Calcium Level 8.3 MG/DL (8.5-10.1) Direct Bilirubin 0.3 MG/DL (0.0-0.2) Imaging Last Impressions Hepatobiliary Scan Nuclear Medicine 12/02/17 0000 Signed Impressions: Service Date/Time: Saturday, December 02, 2017 00:00 - CONCLUSION: 1. No definite bile leak identified. Shankar Elmore MD Abdomen/Pelvis CT 12/01/17 0358 Signed Impressions: Service Date/Time: Friday, December 01, 2017 04:15 - CONCLUSION: 1. Status post recent cholecystectomy with some mild postsurgical changes. 2. Otherwise, no acute pathology. Jairo Rivas MD Liver Ultrasound 12/01/17 0000 Signed Impressions: Service Date/Time: Friday, December 01, 2017 07:26 - CONCLUSION: Status post cholecystectomy. Otherwise unremarkable. Barry Ellington MD Cholangiopancreatography MRI 12/01/17 0000 Signed Impressions: Service Date/Time: Friday, December 01, 2017 08:25 - CONCLUSION: 1. Status post cholecystectomy. 2. Mildly prominent intrahepatic and extrahepatic biliary ducts may be due to postcholecystectomy state. 3. Filling defects previously seen in the common duct are not seen on the current study. Barry Ellington MD PE at Discharge GENERAL: NAD SKIN: Warm and dry. HEAD: Normocephalic. EYES: No scleral icterus. No injection or drainage. NECK: Supple, trachea midline. No JVD or lymphadenopathy. CARDIOVASCULAR: Regular rate and rhythm without murmurs, gallops, or rubs. RESPIRATORY: Breath sounds equal bilaterally. No accessory muscle use. GASTROINTESTINAL: Abdomen soft, non tender, nondistended. +BS MUSCULOSKELETAL: No cyanosis, or edema. BACK: Nontender without obvious deformity. No CVA tenderness. Hospital Course She was admitted with abdominal pain to rule out bile leak for which gastroenterology and general surgery were consulted.MRCP was obtained and showed mildly prominent intrahepatic and extrahepatic biliary ducts with resolution of previous filling defects seen in the common bile duct.HIDA without any definite bile leak. Her diet was advanced accordingly and liver function tests were monitored. DVT and GI prophylaxis were provided. Prior to discharge, patient's condition improved and vital remained stable. Pt Condition on Discharge: Good Discharge Disposition: Discharge Home Discharge Time: <= 30 minutes Discharge Instructions DIET: Follow Instructions for: As Tolerated, No Restrictions Activities you can perform: Regular-No Restrictions Follow up Referrals: PCP Follow-up - 1 Week Surgical with Bryon Siegel MD Appt set for Dec 05 at 9:20AM New Medications: Hydrocodone-Acetaminophen ([place]) 5 Mg-325 Mg Tab 1-2 TAB PO Q4H PRN for PAIN, #15 TAB 0 Refills Continued Medications: Hydrocodone-Acetaminophen ([place]) 5 Mg-325 Mg Tab 1 TAB PO Q4H PRN for PAIN, TAB 0 Refills Darin Dumas MD Dec 03, 2017 11:30
--- NOTE | 2017-12-03 14:23 | HHI.GIFU ---
GI Follow-up Note Consult Follow-up Subjective: Patient was seen earlier this morning. I was awaiting LFTs before doing this note. Patient is feeling well and has no abdominal pain. She was on a low-fat diet and doing well Objective: PHYSICAL EXAMINATION: Vitals signs stable No fever CHEST: Chest is clear to auscultation and percussion. CARDIAC: Regular rate and rhythm with no murmur gallop or rubs. ABDOMEN: Soft, nondistended, nontender; no hepatosplenomegaly; bowel sounds are present in all four quadrants. EXTREMITIES: No edema. SKIN: no jaundice. TESTING SHAKING SHIPPING: No focal deficits; alert and oriented times three. Available Data (labs, X- Rays, Procedues) : LFTs abnormal but the trend is downwards. Alkaline phosphatase elevated but it frequently lags behind the transaminases ASSESSMENT/PLAN: 1. epigastric painresolved 2. elevated LFTs. improvedsee above PLAN: 1. patient tolerating low-fat diet. 2. followup LFTs. Patient and her family are aware when she gets back home to [place] she needs to followup with Dr. chan to make sure her LFTs come back to normal. if the do not then she needs a workup to find out why she has increased LFTs such as autoimmune hepatitis, metabolic processes, viral processes etc. 3. patient doing well from GI standpoint and if she continues to well she can be discharged. It was a pleasure seeing Lynette Coronado. Thank you for this consult. Entered by: Wing Olson MD Dec 03, 2017 14:23
== END 2017-12-03 11:51 | disposition home or self-care (01) ==
LOC: NEPE 03:45 → NEDA 08:09 → H6YA 11:45
PROVIDERS: ADMIT Hospitalist; ATTEND Hospitalist
DX: R10.13 Epigastric pain (principal); R11.0 Nausea; R79.89 Other specified abnormal findings of blood chemistry; J45.909 Unspecified asthma, uncomplicated; Z98.890 Other specified postprocedural states; Z86.32 Personal history of gestational diabetes; Z90.49 Acquired absence of other specified parts of digestive tract
CPT/HCPCS: 74176; 74181; 76377; 76705; 78227; 80053; 81001; 82150; 82248; 83605; 83690; 84702; 85025; 96361; 96374; 96375; 96376; 99285; A9537; G0378; J1170; J1885; J2270; J2405; J2805; J7030